=== PATIENT | female | born 1965 | race Hispanic/Latino ===

== ENCOUNTER 2017-12-24 19:27 | Emergency (ER) | payer OTHER ==
[~2017-12-24] VITALS: Ht 162.6 cm; Wt 81.0 kg
[2017-12-24] MEDS ORDERED: FLUCONAZOLE150 MG PO (20:17)
[2017-12-24] MEDS ORDERED: PIOGLITAZONE HC15 MG PO (20:18)
[2017-12-24] MEDS ORDERED: METFORMIN HCL500 MG PO (20:18)
[2017-12-24] MEDS ORDERED: ATORVASTATIN CA10 MG PO (20:19)
[2017-12-24] MEDS ORDERED: TRAZODONE50 MG PO (20:19)
[2017-12-24] MEDS ORDERED: DULOXETINE HCL60 MG PO (20:20)
[2017-12-24] MEDS ORDERED: LYRICA225 MG PO (20:20)
[2017-12-24] MEDS ORDERED: LOPID600 MG PO (20:20)
[2017-12-24] MEDS ORDERED: VITAMIN E400 UNIT PO (20:21)
[2017-12-24] MEDS ORDERED: VITAMIN D1000 UNI1 PO (20:21)
[2017-12-24] MEDS ORDERED: VITAMIN B-12500 MCG PO (20:22)
[2017-12-24] MEDS ORDERED: TRAMADOL HCL50 MG PO (20:28)
[2017-12-24 20:45] VITALS: BP 112/85
== END 2017-12-24 20:45 | disposition home or self-care (01) | DRG 563 ==
LOC: ED 19:27
DX: S92.502A Displaced unspecified fracture of left lesser toe(s), initial encounter for closed fracture (principal); S43.402A Unspecified sprain of left shoulder joint, initial encounter; E11.9 Type 2 diabetes mellitus without complications; M06.9 Rheumatoid arthritis, unspecified; M19.90 Unspecified osteoarthritis, unspecified site; M79.7 Fibromyalgia; M35.00 Sjogren syndrome, unspecified; W22.09XA Striking against other stationary object, initial encounter; Y92.009 Unspecified place in unspecified non-institutional (private) residence as the place of occurrence of the external cause

== ENCOUNTER 2020-11-09 13:11 | Inpatient (IN) | payer OTHER ==
[~2020-11-09] VITALS: Ht 162.6 cm; Wt 74.2 kg
[~2020-11-09 13:11] MED LIST: ATORVASTATIN CA10 MG PO; DULOXETINE HCL60 MG PO; FLUCONAZOLE150 MG PO; LOPID600 MG PO; LYRICA225 MG PO; METFORMIN HCL500 MG PO; PIOGLITAZONE HC15 MG PO; TRAMADOL HCL50 MG PO; TRAZODONE50 MG PO; VITAMIN B-12500 MCG PO; VITAMIN D1000 UNI1 PO; VITAMIN E400 UNIT PO
--- NOTE | 2020-11-09 13:11 | NUR ---
PATIENT SEEN IN OUTSIDE WAITING AREA OXYGEN SATURATION 89% ON ROOM AIR AND PULSE 92. MD NOTIFIED AND VERBAL ORDERSRECIEVED FOR OXYGEN. PATIENT PLACED ON O2 OXYGEN SATURATION 95% ON 2 LITERS OXYGEN
--- NOTE | 2020-11-09 13:35 | NUR ---
PATIENT TO ROOM VIA WHEELCHAIR ON O2 AND PHYSICIAN NOTIFIED OF PATIENT STATUS
--- NOTE | 2020-11-09 14:30 | NUR ---
PT ADVISED OF WAIT TIME FOR TEST RESULTS. ELEVATED HOB.
[2020-11-09 14:44] LABS: HEMOGLOBIN 14.1 g/dl (12.0-16.0); IMMATURE GRANULOCYTES 0.4 % (0.0-5.0); MEAN CELL VOLUME 93.2 fL CALC (80.0-100.0); MEAN CORPUSCULAR HGB 29.9 pG CALC (26.0-32.0); NEUT# 1.47 thou/uL (2.00-7.15); RED BLOOD COUNT 4.72 mill/uL (4.20-5.60); RED CELL DISTRI WIDTH 14.9 % (11.5-15.5)
[2020-11-09 14:59] LABS: ALBUMIN 3.4 g/dL (3.2-5.0); ALKALINE PHOSPHATASE 174 u/l (38-126); ANION GAP 13 (6-22 (CALC)); BILIRUBIN, TOTAL 0.7 mg/dL (0.0-1.4); BUN 11 mg/dL (7-17); BUN/CREATININE RATIO 24 (12-20 (CALC)); CARBON DIOXIDE 26 mmol/l (22-30); CHLORIDE 102 mmol/l (95-108); CREATININE 0.4 mg/dL (0.5-1.0); GFR > 60 ML/MIN (>=60 (CALC)); GFR FOR AFR.AMER. > 60 ML/MIN (>=60 (CALC)); POTASSIUM 3.8 mmol/l (3.5-5.1); SGOT/AST 137 u/l (14-36); SODIUM 137 mmol/l (137-146); TOTAL PROTEIN 6.8 g/dL (6.3-8.2)
[2020-11-09 15:11] LABS: MYOGLOBIN 28 ng/mL (0 - 62)
--- NOTE | 2020-11-09 15:38 | NUR ---
pt medicated for c/o nausea. emesis bag provided. iv abt infusing.
--- NOTE | 2020-11-09 16:35 | NUR ---
PT AWARE OF PENDING ADMIT. ASSISTED W/REPOSITIONING.
--- NOTE | 2020-11-09 17:22 | NUR ---
REPORT CALLED TO JOHANN TREADWELL, [facility]. PT INCREASED TO 6L/M VIA NC BY RT. SATS 92%. AWARE.
--- NOTE | 2020-11-09 17:50 | NUR ---
PT A/O X3. PERRLA. WEAK HAND GRASPS. STRONG RADIAL AND PEDAL PULSES. #20 LAC NS @100. IV SITE HEALTHY. O2 @6L HIGH FLOW; PT MAINTAING 93%. TELE IN PLACE. UPPER LUNGS CLEAR, LOWER LOBES DIMINISHED. DRY COUGH NOTED. LABORED BREATHING. NO C/O PAIN. HOB ELEVATED. BOWEL SOUNDS ACTIVE X4. LAST BM 11/09/20. SKIN INTACT. SAFETY PRECAUTIONS IN PLACE. CALL LIGHT IN REACH. WILL CONTINUE TO MONITOR.
[2020-11-09 17:56] VITALS: BP 122/80
[2020-11-09 19:25] VITALS: BP 118/77
[2020-11-09 23:30] VITALS: BP 118/79
[2020-11-10] VITALS (12 sets, daily range): BP systolic 114–133; BP diastolic 64–80
[2020-11-10 06:39] LABS: HEMATOCRIT 41.5 % (37.0-47.0); HEMOGLOBIN 13.1 g/dl (12.0-16.0); MEAN CORPUSCULAR HGB 29.4 pG CALC (26.0-32.0); MEAN CORPUSCULAR HGB CONC 31.6 g/dL CAL (32.0-36.0); NEUT# 0.65 thou/uL (2.00-7.15); RED BLOOD COUNT 4.46 mill/uL (4.20-5.60); RED CELL DISTRI WIDTH 14.9 % (11.5-15.5)
[2020-11-10 06:42] LABS: ALBUMIN 2.9 g/dL (3.2-5.0); ALKALINE PHOSPHATASE 150 u/l (38-126); ANION GAP 14 (6-22 (CALC)); BILIRUBIN, TOTAL 0.5 mg/dL (0.0-1.4); BUN 14 mg/dL (7-17); BUN/CREATININE RATIO 39 (12-20 (CALC)); C-REACTIVE PROTEIN 6.2 mg/dL (0-0.9); CARBON DIOXIDE 22 mmol/l (22-30); CHLORIDE 106 mmol/l (95-108); CREATININE 0.4 mg/dL (0.5-1.0); GFR > 60 ML/MIN (>=60 (CALC)); GFR FOR AFR.AMER. > 60 ML/MIN (>=60 (CALC)); POTASSIUM 4.1 mmol/l (3.5-5.1); SGOT/AST 89 u/l (14-36); SODIUM 138 mmol/l (137-146); TOTAL PROTEIN 5.9 g/dL (6.3-8.2)
--- NOTE | 2020-11-10 06:55 | NUR ---
call received from lab. critical lab results was reported to nurse. wbc went down to 1.3 Md Subramanian made aware. no neww order received.
--- NOTE | 2020-11-10 07:30 | NUR ---
PT A/O X3. PT C/O CHEST PAIN WHEN DEEP BREATHING; 5/10 ON PAIN SCALE. REPOSITIONED FOR COMFORT. TELE IN PLACE. O2 @12 L ON PT. NONPRODUCTIVE COUGH NOTED. O2 STATING 90-91%. # 20 LAC NS @100. IV SITE HEALTHY. ALL LUNG HEDRICK W/ CRACKLES NOTED. STRONG RADIAL AND PEDAL PULSES. BOWEL SOUNDS ACTIVE X4. LAST BM11/09/20. SKIN INTACT. NO EDEMA PRESENT AT THIS TIME. POC DISCUSSED PT. SAFETY PRECAUTIONS IN PLACE. CALL LIGHT IN REACH. WILL CONTINUE TO MONITOR.
[2020-11-10] MEDS ORDERED: TRESIBA100 UNIT/M (07:52)
[2020-11-10] MEDS ORDERED: OZEMPIC4 MG (07:53)
--- NOTE | 2020-11-10 10:29 | NUR ---
PT ON 12 L OF O2 LYING ON HER RIGHT SIDE. INSTRUCTED PT TO LIE IN OPRONE POSITION TO HELP WITH HER LUNGS. PT REPOSITION; PT STATES LYING ON HER BELLY IS COMFORTABLE. O2 DROPPED TO 9L AND STATING 90-91%. ADVISED PT TO STAY IN POSITION LONG TOLERATED. CALL LIGHT IN REACH. WILL CONTINUE TO MONITOR.
[2020-11-10] MEDS ORDERED: OZEMPIC2 MG/1.5 M (10:41)
--- NOTE | 2020-11-10 12:00 | NUR ---
PT RESTING IN PRONE POSITION. O2 @ 9L ON PT; 93%. NO C/O AT THIS TIME. CALL LIGHT IN REACH. WILL CONTINUE TO MONITOR.
--- NOTE | 2020-11-10 13:35 | NUR ---
PT REPORT GIVEN TO BHARAT SHUKLA
--- NOTE | 2020-11-10 13:38 | NUR ---
report received from Tory Carmen LPN;
--- NOTE | 2020-11-10 14:05 | NUR ---
PATIENT ARRIVED IN ICU 5
--- NOTE | 2020-11-10 14:30 | NUR ---
PATIENT IS A/OX3, ABLE TO MAKE NEEDS KNOWN. PERRLA 3MM. COMPLAINS OF PAIN WHEN SHE TAKES A DEEP BREATH. DIMINISHED LUNG SOUNDS. NORMAL HEART RATE. ACTIVE BOWEL SOUNDS. NO EDEMA PRESENT AT THIS TIME. STRONG/EQUAL HAND RETAIL BRAND AMBASSADOR. STRONG PULSES. SAFETY MEASURES IN PLACE. CALL LIGHT IN REACH WILL CONTINUE TO MONITOR. PATIENT IS CURRENTLY PRONE, O2 SATS 98 AT THIS TIME.
--- NOTE | 2020-11-10 16:00 | NUR ---
MEDICATIONS BROUGHT OVER BY [employer] AND IS BEING HUNG UP.
--- NOTE | 2020-11-10 18:23 | NUR ---
RESTING IN BED, DINNER AT BEDSIDE.
--- NOTE | 2020-11-10 19:10 | NUR ---
pulse ox is 78%. pt laying on lt side. instructed pt prone & she complied. o2 sat increased to 89% on 15 liters high flow. instructed pt on cough etiquette. quality assurance monitor shows sinus rhythm. #20 lac ns infusing @ 100cchr. po fluids taken poor. voids per bsc. fall & air/contact precautions cont.
--- NOTE | 2020-11-10 20:40 | NUR ---
returned call to . update given.
--- NOTE | 2020-11-10 20:45 | NUR ---
dr lee called this news writer. update given. no new orders.
--- NOTE | 2020-11-10 22:15 | NUR ---
up per self to bsc. pulse ox 67%. encouraged pt to quickly finish then return to bed in the prone position. pt complied. pulse ox 89%.
[2020-11-11] VITALS (14 sets, daily range): BP systolic 101–137; BP diastolic 51–82
--- NOTE | 2020-11-11 00:01 | NUR ---
eyes closed. no acute distress. alarm security or surveillance monitor shows sinus rhythm hr 74.
--- NOTE | 2020-11-11 02:00 | NUR ---
remains in prone position. no acute distress. o2 cont.
--- NOTE | 2020-11-11 04:00 | NUR ---
eyes closed. remains in prone position. jacquard loom weaver shows sinus rhythm hr 74.
--- NOTE | 2020-11-11 05:40 | NUR ---
pulse ox 60%. pt on bsc. encouraged pt to finish quickly then return to bed in prone position. pt complied. after approx 1 minute pulse ox is 86%.
[2020-11-11 07:40] LABS: HEMATOCRIT 42.1 % (37.0-47.0); HEMOGLOBIN 13.3 g/dl (12.0-16.0); IMMATURE GRANULOCYTES 0.5 % (0.0-5.0); MEAN CELL VOLUME 93.8 fL CALC (80.0-100.0); MEAN CORPUSCULAR HGB 29.6 pG CALC (26.0-32.0); MEAN CORPUSCULAR HGB CONC 31.6 g/dL CAL (32.0-36.0); NEUT# 3.19 thou/uL (2.00-7.15); RED BLOOD COUNT 4.49 mill/uL (4.20-5.60); RED CELL DISTRI WIDTH 14.8 % (11.5-15.5)
--- NOTE | 2020-11-11 07:46 | NUR ---
O2 SAT ON 15L HF 88%
[2020-11-11 08:02] LABS: ALBUMIN 2.8 g/dL (3.2-5.0); ALKALINE PHOSPHATASE 133 u/l (38-126); ANION GAP 10 (6-22 (CALC)); BILIRUBIN, TOTAL 0.5 mg/dL (0.0-1.4); BUN 19 mg/dL (7-17); BUN/CREATININE RATIO 55 (12-20 (CALC)); CARBON DIOXIDE 25 mmol/l (22-30); CHLORIDE 110 mmol/l (95-108); CREATININE 0.3 mg/dL (0.5-1.0); GFR > 60 ML/MIN (>=60 (CALC)); GFR FOR AFR.AMER. > 60 ML/MIN (>=60 (CALC)); POTASSIUM 3.9 mmol/l (3.5-5.1); SGOT/AST 78 u/l (14-36); SODIUM 141 mmol/l (137-146)
--- NOTE | 2020-11-11 08:30 | NUR ---
Patient is resting with complaint of nausea. Louisa Saige and cold wash cloth was provided. Patient reposition and encourage to go prone on the bed after nausea improves. Will continue to monitor.
--- NOTE | 2020-11-11 12:30 | NUR ---
Patient is prone position. Patient ask if she is having any pain and stated no. Will continue to monitor.
--- NOTE | 2020-11-11 16:00 | NUR ---
Patient reposition oxygenation is continuing to stay in the ruth 80s. Still in prone position. When awake oxygenation in the low 90s. Patient is continuing to have loose stools. Patient reported having nausea PRN zofran provided. Will continue to monitor.
--- NOTE | 2020-11-11 17:05 | NUR ---
O2 SAT ON 15L HFNC 91%
--- NOTE | 2020-11-11 17:30 | NUR ---
Patients daughter was updated on patient status. Patient is having WOB. Respitory called due to patient having a hard time breathing through her nose and mouth breathing. NON-Rebreather was place to bring O2 up from low 40s current O2 is at 88. Patient is still on prone position. Will continue to monitor.
--- NOTE | 2020-11-11 19:00 | NUR ---
REPORT GIVEN BY AJIT. PATIENT RESTING IN BED WITH NON-REBREATHER IN PLACE AT 15L. RESP LABORED AND SHALLOW. PATIENT EDUCATED ON DEEP BREATHING, CONTIUNES TO TAKE SHALLOW BREATH THROUGH HER MOUTH. FALL AND SAFTEY PRECAUTIONS IN PLACE. IV INFUSING FLUIDS. NSR ON TELE. PLAN OF CARE DISCUCSSED. PATIENT INFORMED TO CALL WITH ANY QUESTIONS OR CONCERNS.
--- NOTE | 2020-11-11 19:27 | NUR ---
RT CALLED TO BEDSIDE. PATIENT'S O2 SAT 57%, PATIENT IS EXPERIENCING SOB. PATIENT HAS AGREED TO BIPAP AT THIS TIME.
--- NOTE | 2020-11-11 20:11 | NUR ---
UPDATED ON PATIENT CONDITION.
--- NOTE | 2020-11-11 21:55 | NUR ---
UPDATED ON PATIENT CONDITION AND BIPAP SETTINGS
[2020-11-12] VITALS (61 sets, daily range): BP systolic 93–182; BP diastolic 61–112
--- NOTE | 2020-11-12 02:01 | NUR ---
PATIENT RESTING IN BED WITH EYES CLOSED. RESP EVEN AND UNLABORED. NO S/S OF DISTRESS NOTED. FALL AND SAFTEY PRECAUTIONS IN PLACE. BIPAP IN PLACE.
[2020-11-12 04:18] LABS: HEMATOCRIT 43.3 % (37.0-47.0); HEMOGLOBIN 13.7 g/dl (12.0-16.0); IMMATURE GRANULOCYTES 0.6 % (0.0-5.0); MEAN CELL VOLUME 93.7 fL CALC (80.0-100.0); MEAN CORPUSCULAR HGB 29.7 pG CALC (26.0-32.0); MEAN CORPUSCULAR HGB CONC 31.6 g/dL CAL (32.0-36.0); NEUT# 5.01 thou/uL (2.00-7.15); RED BLOOD COUNT 4.62 mill/uL (4.20-5.60); RED CELL DISTRI WIDTH 14.9 % (11.5-15.5)
--- NOTE | 2020-11-12 04:43 | NUR ---
PATIENT RESTING WITH EYES CLOSED. BI-PAP IN PLACE. FALL AND SAFTEY PRECAUTIONS IN PLACE.
[2020-11-12 04:46] LABS: ALBUMIN 2.8 g/dL (3.2-5.0); ALKALINE PHOSPHATASE 132 u/l (38-126); ANION GAP 7 (6-22 (CALC)); BILIRUBIN, TOTAL 0.5 mg/dL (0.0-1.4); BUN 21 mg/dL (7-17); BUN/CREATININE RATIO 55 (12-20 (CALC)); C-REACTIVE PROTEIN 3.3 mg/dL (0-0.9); CARBON DIOXIDE 31 mmol/l (22-30); CHLORIDE 109 mmol/l (95-108); CREATININE 0.4 mg/dL (0.5-1.0); GFR > 60 ML/MIN (>=60 (CALC)); GFR FOR AFR.AMER. > 60 ML/MIN (>=60 (CALC)); POTASSIUM 3.5 mmol/l (3.5-5.1); SGOT/AST 69 u/l (14-36); SODIUM 143 mmol/l (137-146); TOTAL PROTEIN 5.9 g/dL (6.3-8.2)
--- NOTE | 2020-11-12 06:36 | NUR ---
ACCU CHECK 64, APPLE JUICE GIVEN.
--- NOTE | 2020-11-12 06:45 | NUR ---
REPORT RECEIVED FROM TEENA NICHOLSON. CARE ASSUMED.
--- NOTE | 2020-11-12 07:00 | NUR ---
RT AT BEDSIDE WTIH PATIENT. PATIENT GETTING UP TO BSC. O2 SATS DROP WITH MINIMAL MOVEMENT.
--- NOTE | 2020-11-12 07:15 | NUR ---
THIS BANK WORKER INTO ROOM FOR AM ASSESSMENT. PATIENT VERY ANXIOUS. PATIENT STATES "AM I GOING TO " PATIENT VERY SCARED AND VERY ANXIOUS. PATIENT STATES SHE HAS BEEN INCONTIENT. DR OLMOS PHONED FOR MEDICATION FOR ANXIETY. NEW ORDERS RECEIVED.
--- NOTE | 2020-11-12 08:00 | NUR ---
PATIENT HAVING LABORED RESPIRATIONS. RESPIRATORY RATE 50-60. PATIENT ENCOURAGED TO SLOW RESPIRATEIONS. BLUNT ATTEMPTS X2 BY ICU NURSING STAFF WERE UNSUCCESSFUL. PHONED OR STAFF TO COME AND ASSIST. HOLLIE NICHOLSON PLACED 12 FR BLUNT. UA OBTAINED AND SENT TO LAB. URINE IS AVA WITH SEDIMENT.
--- NOTE | 2020-11-12 08:40 | NUR ---
DR OLMOS INTO ROOM TO SEE PATIENT. PATIENT HAVING LABORED BREATHING ON BIPAP. TACHYPNEA NOTED. DR OLMOS DISCUSSED THE NEED FOR INTUBATION AT THIS TIME. PATIENT AGREED TO INTUBATION.
--- NOTE | 2020-11-12 09:15 | NUR ---
INTUBATION FOLLOWS 0915- #20 PLACED RAC 0920- ETMIDATE 20MG GIVEN IV PUSH 0921- SUCC 80MG GIVEN IV PUSH 0928- 8.0 FR ET TUBE PLACED @[address] CAT +CO2 +AUSCULTATION BILAT 0935- 14FR OG PLACED AND PLACED TO LIS 0935- PATIENT PLACED ON PROPOFOL DRIP 0945- RADIOOGY AT BEDSIDE FOR PORTABLE CXR 1000- RESTRAINTS IN PLACE FOR PROTECTION OF ET TUBE
--- NOTE | 2020-11-12 09:57 | NUR ---
ASSSISTED PHYSIICAN IN INTUBATION AND STATED PATIENT ON MECHANICAL VENTILATION. PT REQUIRED SUCTIONING OF VAZQUEZ BLOOD FROM THE ETT. TOTAL TIME SPENT WAS 1 HOUR.
--- NOTE | 2020-11-12 10:30 | NUR ---
PT RESTING IN BED INTUBATED AND SEDATED. IV TITRATIONS PER TITRATION CHARTING.
--- NOTE | 2020-11-12 11:49 | NUR ---
CALLED [address] AT SPOKE TO MELANIA GAVE PT INFORMATION AND WAS GIVEN A CONFIRMATION NUMBER [phone].
--- NOTE | 2020-11-12 12:00 | NUR ---
PT RESTING IN BED INTUBATED AND SEDATED. VSS ON MONITOR.WILL CONTINUE TO MONITOR CLOSELY.
[2020-11-12 12:07] LABS: URINE BILIRUBIN - DIPSTICK NEGATIVE (NEGATIVE); URINE BLOOD DIPSTICK TRACE-INTACT (NEGATIVE); URINE COLOR YELLOW; URINE GLUCOSE - DIPSTICK NEGATIVE (NEGATIVE); URINE KETONE 15 mg/dL (NEGATIVE); URINE LEUK ESTERASE NEGATIVE (NEGATIVE); URINE PROTEIN - DIPSTICK TRACE mg/dL (NEG-TRACE); URINE SPECIFIC GRAVITY 1.025; URINE UROBILINOGEN - DIPSTICK 0.2 E.U./dL (0.2)
[2020-11-12 12:13] LABS: URINE NITRITE - DIPSTICK NEGATIVE (Negative)
--- NOTE | 2020-11-12 12:23 | NUR ---
CALLED FOR CENTRAL LINE PLACEMENT FOR THIS PT. OFFICE NUMBER [phone]. SPOKE TO KURTIS. SHE STATED SHE WILL SEND HIM A TEXT FOR THE PT AND GIVEN THE FLOOR A CALL BACK AT [phone].
--- NOTE | 2020-11-12 14:00 | NUR ---
PT RESTING IN BED INTUBATED AND SEDATED. VSS. WILL CONTINUE TO MONITOR.
--- NOTE | 2020-11-12 16:02 | NUR ---
PT RESTING IN BED INTUBATED AND SEDATED. VSS. SR ON MONITOR. WILL CONTINUE TO MONITOR.
--- NOTE | 2020-11-12 17:50 | NUR ---
PT RESTING IN BED INTUBATED AND SEDATED.
--- NOTE | 2020-11-12 18:15 | NUR ---
PT MOVED TO AIR MATRESS BED. PT HAD MODERATED LIQUID BM. PT GIVEN BED BATH. PT TOLERATED TRANSFER WELL.
--- NOTE | 2020-11-12 19:30 | NUR ---
PATIENT REMAINS INTUBATED ON VENT. SEDATED ON PRPOFOL AND VERSED GTTS. RASS -5. SOFT WRIST RESTRAINTS IN PLACE BILATERALLY. PATIENT IS ON AN AIR MATTRESS. SCDS IN PLACE BILATERALLY. LABOR ECONOMIST SHOWS SR. SHIFT ASSESSMENT COMPLETED.
--- NOTE | 2020-11-12 21:40 | NUR ---
CALLED [facility] TO OBTAIN CONSENT FOR CENTRAL LINE PLACEMENT. TELEPHONE CONSENT GIVEN.
--- NOTE | 2020-11-12 22:00 | NUR ---
REPOSITIONED. VSS. SB-SR ON MONITOR.
--- NOTE | 2020-11-12 22:30 | NUR ---
LSCTLC PLACED BY DR ALVARADO WITHOUT DIFFICULTY.
--- NOTE | 2020-11-12 23:00 | NUR ---
PORTABLE CHEST XRAY CONFIRMED PLACEMNT OF TLC. DR ALVARADO VERIFIED.
[2020-11-13] VITALS (24 sets, daily range): BP systolic 107–145; BP diastolic 71–92
--- NOTE | 2020-11-13 | NUR ---
REPOSITONED. VSS. SB-SR ON MONITOR. O2 SAT UPPER 90'S.
--- NOTE | 2020-11-13 02:00 | NUR ---
REPOSTIONED IN BED. ORAL CARE. SUX ETT AND ORALLY FOR SCANT SECRETIONS. VSS.
--- NOTE | 2020-11-13 03:56 | NUR ---
PARTIAL BED BATH AND COMPLETE LINEN CHANGE DONE. TURNED AND REPOSITIONED.
--- NOTE | 2020-11-13 05:37 | NUR ---
ABGS DRAWN PER RT WADNER. ACCUC HECK 168, COVERED PER SLIDING SCALE PROTOCOL.
[2020-11-13 06:29] LABS: HEMATOCRIT 40.5 % (37.0-47.0); HEMOGLOBIN 12.9 g/dl (12.0-16.0); IMMATURE GRANULOCYTES 0.7 % (0.0-5.0); MEAN CELL VOLUME 92.7 fL CALC (80.0-100.0); MEAN CORPUSCULAR HGB 29.5 pG CALC (26.0-32.0); MEAN CORPUSCULAR HGB CONC 31.9 g/dL CAL (32.0-36.0); NEUT# 5.71 thou/uL (2.00-7.15); RED BLOOD COUNT 4.37 mill/uL (4.20-5.60)
[2020-11-13 06:43] LABS: ALBUMIN 2.4 g/dL (3.2-5.0); ALKALINE PHOSPHATASE 129 u/l (38-126); ANION GAP 7 (6-22 (CALC)); BUN 16 mg/dL (7-17); BUN/CREATININE RATIO 54 (12-20 (CALC)); CARBON DIOXIDE 30 mmol/l (22-30); CHLORIDE 108 mmol/l (95-108); CREATININE 0.3 mg/dL (0.5-1.0); GFR > 60 ML/MIN (>=60 (CALC)); GFR FOR AFR.AMER. > 60 ML/MIN (>=60 (CALC)); POTASSIUM 3.5 mmol/l (3.5-5.1); SGOT/AST 56 u/l (14-36); SODIUM 141 mmol/l (137-146); TOTAL PROTEIN 5.3 g/dL (6.3-8.2)
--- NOTE | 2020-11-13 06:45 | NUR ---
REPORT RECEIVED FROM JJ NICHOLSON. CARE ASSUMED.
--- NOTE | 2020-11-13 07:00 | NUR ---
PT RESTING IN BED INTUBATED AND SEDATED. SHIFT ASSESSMENT COMPLETED AT THIS TIME. IV PATENT X3. VSS ON MONITOR. CALL LIGHT IN REACH. WILL CONTINUE TO MONITOR.
[2020-11-13 07:01] LABS: C-REACTIVE PROTEIN 14.6 mg/dL (0-0.9)
--- NOTE | 2020-11-13 08:30 | NUR ---
DR OLMOS AT BEDSIDE. PLAN OF CARE DISCUSSED. WILL HOLD ON AWAKENING TRIAL FOR TODAY AND ALLOW PATIENT TIME TO REST ON VENT. PLAN FOR AWAKENING TRIAL FOR TOMORROW.
--- NOTE | 2020-11-13 10:00 | NUR ---
PT RESTING IN BED INTUBATED AND SEDATED AT THIS TIME. VSS ON MONITOR. WILL CONTINUE TO MONITOR CLOSELY.
--- NOTE | 2020-11-13 12:00 | NUR ---
PT RESTING IN BED INTUBATED AND SEDATED AT THIS TIME. VSS ON MONITOR. WILL CONTINUE TO MONITOR.
--- NOTE | 2020-11-13 14:13 | NUR ---
PT RESTING IN BED INTUBATED AND SEDATED. VSS ON MONITOR. WILL CONTINUE TO MONITOR CLOSELY.
--- NOTE | 2020-11-13 16:00 | NUR ---
PT RESTING IN BED INTUBATED AND SEDATED. VSS ON MONITOR. CALL LIGHT IN REACH. WILL CONTINUE TO MONTIOR.
--- NOTE | 2020-11-13 18:08 | NUR ---
PT RESTING IN BED INTUBATED AND SEDATED AT THIS TIME. VSS ON MONITOR. WILL CONTINUE TO MONITOR CLOSELY.
--- NOTE | 2020-11-13 18:44 | NUR ---
PEEP INCREASED TO 14cm DUE TO PT DROPPING HER SPO2 TO 83. SPO2 INCREASED TO 93% FOLLOWING CHANGE.
--- NOTE | 2020-11-13 20:00 | NUR ---
RESTING IN BED IN SUPINE POSITION, HOB ELEVATED. REMAINS INTUBATED AND SEDATED. RASS -4. LSCTLC IN PLACE WITH NS AT 50 ML/HR, VERSED GTT AT 2 MG/HR, AND PROPOFOL GTT AT 60 MCG/KG/MIN. BREATH SOUNDS DIMINISHED/COARSE. SUX ETT FOR SCANT SECRETIONS AND ORALLY FOR MODERATE RUST COLORED SECRETIONS. ORAL CARE PROVIDED. INDUSTRIAL HYGIENE ENGINEER SHOWS SB-SR. SHIFT ASSESSMENT COMPLETED. VSS. O2 SAT 91%
--- NOTE | 2020-11-13 20:20 | NUR ---
PATIENT TURNED TO PRONE POSITION WITH ASSIST OF 4 NURSES, 1 INVESTMENT COUNSELOR AND RT. O2 SAT INITIALLY DROPPED BUT PICKED UP TO UPPER 98% WITHIN 5 MINUTES.
--- NOTE | 2020-11-13 21:00 | NUR ---
CONTINUES IN PRONE POSITION, O2 SAT 100%.
--- NOTE | 2020-11-13 22:00 | NUR ---
REMAINS IN PRONE POSITION AND MAINTAINNG O2 SAT OF 100% VSS. LEARNING DISABILITIES SPECIALIST SHOWS SR.
[2020-11-14] VITALS (39 sets, daily range): BP systolic 104–178; BP diastolic 56–92
--- NOTE | 2020-11-14 | NUR ---
VSS. SAME VENT SETTINGS. O2 SAT 100% CONTINUES TO REST IN PRONE POSITION.
--- NOTE | 2020-11-14 02:00 | NUR ---
REMAINS RESTING PRONE. O2 SAT HAS MAINTAINED AT 100% WHILE PRONE. VSS. SR ON MONITOR.
--- NOTE | 2020-11-14 04:00 | NUR ---
COMPLETE BED BATH GIVEN. TURNED TO SUPINE POSITION WITH ASSIST OF 6. O2 SAT REMAINS AT 100%
--- NOTE | 2020-11-14 05:00 | NUR ---
BLOOD DRAWN FROM TLC FOR AM LABS. ALL PORTS HAVE GOOD BLOOD RETURN, FLUSHED AND PATENT.
--- NOTE | 2020-11-14 06:00 | NUR ---
NO CHANGES TO REPORT. REMAINS IN SEMI-FOWLERS POSITION. O2 SAT 98-100% REMAINS NTUBATED AND SEDATED ON PROPOFOL GTT AT 50 MCG/KG/MIN AND VERSED AT 2 MG/HR.
[2020-11-14 06:43] LABS: HEMATOCRIT 38.1 % (37.0-47.0); HEMOGLOBIN 12.1 g/dl (12.0-16.0); IMMATURE GRANULOCYTES 0.6 % (0.0-5.0); MEAN CELL VOLUME 92.5 fL CALC (80.0-100.0); MEAN CORPUSCULAR HGB 29.4 pG CALC (26.0-32.0); MEAN CORPUSCULAR HGB CONC 31.8 g/dL CAL (32.0-36.0); NEUT# 7.28 thou/uL (2.00-7.15); RED BLOOD COUNT 4.12 mill/uL (4.20-5.60)
--- NOTE | 2020-11-14 06:45 | NUR ---
weaned pt peep and fio2 as per pt spo2. recieved pt on all other documented paramters. pt everett wean wellat this time. nad. dolphin researcher to monitor.
--- NOTE | 2020-11-14 07:30 | NUR ---
PT RESTING IN BED INTUBATED AND SEDATED AT THIS TIME. SHIFT ASSESSMENT COMPLETED AT THIS TIME. IV PATENT X1. AWAKENING TRIAL STARTED SEE TITRATION CHARTING. VSS ON MONITOR. WILL CONTINUE TO MONITOR CLOSELY.
[2020-11-14 07:31] LABS: ALBUMIN 2.3 g/dL (3.2-5.0); ALKALINE PHOSPHATASE 116 u/l (38-126); ANION GAP 6 (6-22 (CALC)); BUN 16 mg/dL (7-17); BUN/CREATININE RATIO 58 (12-20 (CALC)); CARBON DIOXIDE 30 mmol/l (22-30); CHLORIDE 109 mmol/l (95-108); CREATININE 0.3 mg/dL (0.5-1.0); GFR > 60 ML/MIN (>=60 (CALC)); GFR FOR AFR.AMER. > 60 ML/MIN (>=60 (CALC)); POTASSIUM 3.6 mmol/l (3.5-5.1); SGOT/AST 39 u/l (14-36); SODIUM 142 mmol/l (137-146); TOTAL PROTEIN 5.1 g/dL (6.3-8.2)
[2020-11-14 07:36] LABS: BILIRUBIN, TOTAL 0.5 mg/dL (0.0-1.4)
[2020-11-14 07:47] LABS: C-REACTIVE PROTEIN 12.4 mg/dL (0-0.9)
--- NOTE | 2020-11-14 08:16 | NUR ---
WEANED PEEP AND FIO2 PER PT SPO2. PT MAURO WELL AT THIS TIME. NAD. ASSOCIATE SALES REPRESENTATIVE TO MONITOR.
--- NOTE | 2020-11-14 08:36 | NUR ---
REPORT RECEIVED FROM JJ NICHOLSON. CARE ASSUMED.
--- NOTE | 2020-11-14 08:45 | NUR ---
DR OLMOS ON UNIT MAKING ROUNDS. PLAN OF CARE DISCUSSED.
--- NOTE | 2020-11-14 10:06 | NUR ---
weaned fio2 and peep as per pt spo2. pt everett [place] at this time. nad. land title examiner to monitor. -
--- NOTE | 2020-11-14 10:30 | NUR ---
DAUGHTER BATSHEVA PHONED. TRANSFERRED PHONE TO CORDLESS PHONE INTO ROOM SO PATIENT COULD HEAR DAUGHTERS VOICE. UPDATE PROVIDED.
--- NOTE | 2020-11-14 12:29 | NUR ---
weaned fio2 and peep as per pt spo2. everett well at this time. nad. wrapper counter to monitor.
--- NOTE | 2020-11-14 12:30 | NUR ---
PT RESTING IN BED INTUBATED AND SEDATED. VSS ON MONITOR. WILL CONTINUE TO MONITOR.
--- NOTE | 2020-11-14 14:00 | NUR ---
PT CONTINUES TO REST IN BED INTUBATED AND SEDATED. WILL CONTINUE TO MONITOR.
--- NOTE | 2020-11-14 14:45 | NUR ---
TITRATED PARAMETERS PER PT SPO2. SENIOR DATABASE PROGRAMMER TO MONITOR.
--- NOTE | 2020-11-14 15:15 | NUR ---
O2 SATS NOTED 71% ON MONITOR. PHONED RT. FIO2 INCREASED VENT ADJUSTMENTS MADE BY RT.
--- NOTE | 2020-11-14 17:04 | NUR ---
no changes at this time.
--- NOTE | 2020-11-14 18:14 | NUR ---
CONTINUOUS TUBE FEED PULMOCARE 1.5 REJI STARTED AT THIS TIME @ 30ML/HR VIA OG TUBE. HOB ELEVATED AT 30 DEGREES. PT TOLERATING WELL.
--- NOTE | 2020-11-14 19:45 | NUR ---
PATIENT REMAINS INTUBATED AND SEDATED. VENT SETTINGS DOCUMENTED IN INTERVENTIONS. O2 AT 100% PATIENT O2 SAT 96% BREATH SOUNDS DIMINISHED AND COARSE. SUX ETT FOR SCANT GARCIA SECRETIONS. MOUTH CARE PROVIDED. LSCTLC IN PLACE, DSG CDI. PROPOFOL AT 55 MCG/KG/MIN AND VERSED AT 2 MG/HR FOR SEDATION. RASS -4. BUSINESS CONTINUITY SPECIALIST SHOWS SR.
--- NOTE | 2020-11-14 19:48 | NUR ---
PATIENT DAUGHTER BATSHEVA PHONED FOR CONDITION UPDATE.
--- NOTE | 2020-11-14 20:45 | NUR ---
PORTABLE PHONE BROUGHT TO BEDSIDE AND PATIENT DAUGHTER BATSHEVA SPOKE TO HER MOM.
--- NOTE | 2020-11-14 22:00 | NUR ---
TF STARTED BY PREVIOUS SHIFT, PULMOCARE FEEDING AT 30 ML/HR VIA FEEDING PUMP. PLACEMENT OF OG TUBE CONFIRMED. NO RESIDUAL, TOLERATING FEEDING WELL THUS FAR. VSS. REMAINS SEDATED AND INTUBATED. O2 SAT 96%
[2020-11-15] VITALS (23 sets, daily range): BP systolic 100–158; BP diastolic 63–96
--- NOTE | 2020-11-15 | NUR ---
RESTING WITH EEYS CLSOED. REMAINS INUTBATED AND SEDATED. VSS.
--- NOTE | 2020-11-15 00:20 | NUR ---
PATIENT RR UP INTO THE 40'S. O2 SAT DROPPED TO 80'S. CALL TO XANDER THOMAS TO EVALUATE. NGT RESIDUAL CHECK SHOWS 90 ML. TUBE FEEDING ON HOLD.
--- NOTE | 2020-11-15 00:35 | NUR ---
FIO2 ON VENT CHANGED TO 80% PER RT XANDER. O2 SAT INCREASED TO 93-94%
--- NOTE | 2020-11-15 02:00 | NUR ---
VSS. HAS ONLY PUT OUT SMALL AMOUNT OF VERY CONCENTRATED TEA COLORED URINE.
--- NOTE | 2020-11-15 03:30 | NUR ---
COMPLETE BED BATH GIVEN. AND LINENS CHANGED. PATIENT TURNED TO PRONE POSITION. WITH ASSIST OF 4 NURSES AND RT. DARK PINK URINE NOTED TO BE LEAKING AROUND BLUNT CATHETER. BLUNT DC'D. NEW BLUNT #16 PLACED WITHOUT DIFFICULTY DRAINING IMMEDIATELY A LARGE AMOUNT OF BLOODY URINE.
--- NOTE | 2020-11-15 04:00 | NUR ---
RESTING PRONE. VSS. O2 SAT 93-98% REMAINS ON VENT. SEDATED ON PROPOFOL AND VERSED GTTS. RASS -4. SR ON MONITOR WITH HR IN THE 70'S.
[2020-11-15 05:17] LABS: HEMATOCRIT 38.6 % (37.0-47.0); HEMOGLOBIN 12.5 g/dl (12.0-16.0); IMMATURE GRANULOCYTES 0.8 % (0.0-5.0); MEAN CELL VOLUME 91.5 fL CALC (80.0-100.0); MEAN CORPUSCULAR HGB 29.6 pG CALC (26.0-32.0); MEAN CORPUSCULAR HGB CONC 32.4 g/dL CAL (32.0-36.0); NEUT# 8.75 thou/uL (2.00-7.15); RED BLOOD COUNT 4.22 mill/uL (4.20-5.60); RED CELL DISTRI WIDTH 15.1 % (11.5-15.5)
[2020-11-15 05:57] LABS: ALBUMIN 2.4 g/dL (3.2-5.0); ALKALINE PHOSPHATASE 132 u/l (38-126); ANION GAP 8 (6-22 (CALC)); BILIRUBIN, TOTAL 0.7 mg/dL (0.0-1.4); BUN 25 mg/dL (7-17); BUN/CREATININE RATIO 32 (12-20 (CALC)); CARBON DIOXIDE 30 mmol/l (22-30); CHLORIDE 108 mmol/l (95-108); CREATININE 0.8 mg/dL (0.5-1.0); GFR > 60 ML/MIN (>=60 (CALC)); GFR FOR AFR.AMER. > 60 ML/MIN (>=60 (CALC)); POTASSIUM 3.1 mmol/l (3.5-5.1); SGOT/AST 44 u/l (14-36); SODIUM 143 mmol/l (137-146); TOTAL PROTEIN 5.3 g/dL (6.3-8.2)
--- NOTE | 2020-11-15 06:00 | NUR ---
CONTINUES RESTING IN PRONE POSITION. VSS.
[2020-11-15 06:30] LABS: C-REACTIVE PROTEIN 12.5 mg/dL (0-0.9)
--- NOTE | 2020-11-15 07:40 | NUR ---
pt intubated and sedated; no apparent distress noted; assessment completed at this time; pt sedated; no apparent s/sx of pain noted; no facial grimaces noted; resp even and unlabored; lungs clear/ diminished bases; skin color wnl; vent intact and maintained with settings of AC mode, rate 28, TV 390, peep 12.0, FiO2 of 70%; o2 sat 99-100%l pt is proned; hr reg; strong pulses; generalized edema noted; sr on monitor; bilat scds intact; abd soft with bs present; no bm noted per television script writer; tesfaye to gravity draining blood tinged urine; cath strap intact; TLC noted to left subclavian with propofol gtt infusing at 45mcg/kg/min and versed at 2mg/hr; no redness or edema noted at site; air mattress intact; restraints continued; og intact/ placement confirmed with air insert/ascult; og to lis; will continue to monitor
--- NOTE | 2020-11-15 08:00 | NUR ---
remains intubated and sedated; resp unlabored; proned positioned; o2 sat 100%; sr on monitor; will continue to monitor
--- NOTE | 2020-11-15 09:07 | NUR ---
PT PRONE AND DOING WELL. NAD. VSS. NO CHANGES TO BE MADE AT THIS TIME. SPINNING MULE TENDER TO MONITOR.
--- NOTE | 2020-11-15 09:29 | NUR ---
Dr Walter present at bedside
--- NOTE | 2020-11-15 10:05 | NUR ---
proned; no apparent distress noted; resp even and unlabored; vent intact and maintained; tesfaye to gravity; will continue to monitor
--- NOTE | 2020-11-15 11:13 | NUR ---
call placed to Keri Reinoso as per request; passcode verified; update provided
--- NOTE | 2020-11-15 11:34 | NUR ---
call returned to Tiffany (daughter); update provided
--- NOTE | 2020-11-15 12:00 | NUR ---
remains intubated and sedated; remains proned; iv intact and patent; versed and propofol continues; tesfaye to gravity; will continue to monitor
--- NOTE | 2020-11-15 12:16 | NUR ---
NO CHANGES AT THIS TIME. PT C NAD. RESTING COMFORTABLY. BREADMAN TO MONITOR.
--- NOTE | 2020-11-15 13:20 | NUR ---
sedation titrated at this time for awakening trial; versed on hold; propofol titrated; daughter Keri called from portable phone; allowed to speak over speaker phone to mother; appeals writer remains at bedside; restraints reinforced to prevent self extubation; proned; will continue to monitor
--- NOTE | 2020-11-15 13:48 | NUR ---
pt in prone position. nad. vss. will titrate parameters when pt is placed supine hsortly. sed high school teacher to monitor.
--- NOTE | 2020-11-15 14:03 | NUR ---
resting in bed with eyes closed; intubated and sedated; sedation remains off at this time pending awakening trial; tesfaye to gravity; iv intact; proned; sr on monitor; will continue to monitor
--- NOTE | 2020-11-15 15:13 | NUR ---
versed and propofol remains on hold; pt has not awakened yet; pt will withdraw to pain; will continue to monitor
--- NOTE | 2020-11-15 16:11 | NUR ---
pt remains intubated; versed and propofol remains on hold; pt withdraws to painful stimuli; pt has not awakened; prone positioned; tesfaye to gravity; iv intact and patent; vent maintained; will continue to monitor
--- NOTE | 2020-11-15 16:30 | NUR ---
pt repositioned to supine position x4 staff; tolerated well; eyes opened briefly; monitoring attachments applied; sedation remains on hold; sr on monitor; tesfaye to gravity; will continue to monitor
--- NOTE | 2020-11-15 17:59 | NUR ---
pt noted with eyes open; pt does not follow verbal commands at this time; hr 90s; tesfaye to gravity; repositioned; air mattress; sedation resumed; versed at 2mg/hr; propofol at 30mcg/kg/min
--- NOTE | 2020-11-15 20:00 | NUR ---
PATIENT REMAINS INTUBATED AND SEDATED. VENT SETTINGS DOCUMENTED IN INTERVENTIONS. O2 SAT 98% BREATH SOUNDS DIMINISHED. SUX ETT AND ORALLY FOR SCANT SECRETIONS. OGT TO LIS DRAINING GASTRIC CONTENTS. BLUNT DRAINS BLOOD TINGED URINE WITH RED SEDIMENT. GENERALIZED EDEMA PRESENT. PATIENT IS ON AN AIR MATTRESS. BILATERAL SOFT WRIST RESTRAINTS IN PLACE. LSCTLC IN PLACE, DSG CDI. PROPOFOL INFUSING AT 30 MCG/KG/MIN AND VERSED GTT AT 2 MG/HR. PATIENT ADEQUATELY SEDATED-RASS -4. PRODUCTION STAFF WORKER SHOWS SR.
--- NOTE | 2020-11-15 22:00 | NUR ---
REMAINS INTUBATED AND SEDATED. VSS. O2 SAT 98%
[2020-11-16] VITALS (23 sets, daily range): BP systolic 90–140; BP diastolic 61–90
--- NOTE | 2020-11-16 | NUR ---
ACCU CHECK 85. NO COVERAGE REQUIRED. VSS. REMAINS SEDATED. VENT SETTINGS UNCHANGED FROM EARLIER ASSESSMENT. O2 SATS UPPER 90'S. DIURESING WELL AFTER LASIX GIVEN EARLIER.
--- NOTE | 2020-11-16 02:00 | NUR ---
NO CHANGGES TO REPORT AT THIS TIME. REMAINS SEDATED AND INTUBATED. PROPOFOL CONTINUES AT 30 MCG/KG/MIN AND VERSED AT 2 MG/HR. SR ON MONITOR.
--- NOTE | 2020-11-16 04:00 | NUR ---
CONTINUES ON VENT. SEDATION ON PROPOFOL AND VERSED, RASS -4 TO -5. VSS. O2 SAT 97-100% VSS. MONITOR SB-SR.
--- NOTE | 2020-11-16 05:30 | NUR ---
COMPLETE BED BATH GIVEN.
[2020-11-16 06:43] LABS: HEMATOCRIT 40.2 % (37.0-47.0); HEMOGLOBIN 13.1 g/dl (12.0-16.0); IMMATURE GRANULOCYTES 0.9 % (0.0-5.0); MEAN CELL VOLUME 92.2 fL CALC (80.0-100.0); MEAN CORPUSCULAR HGB CONC 32.6 g/dL CAL (32.0-36.0); NEUT# 6.25 thou/uL (2.00-7.15); RED BLOOD COUNT 4.36 mill/uL (4.20-5.60); RED CELL DISTRI WIDTH 15.5 % (11.5-15.5)
[2020-11-16 07:06] LABS: ALBUMIN 2.4 g/dL (3.2-5.0); ALKALINE PHOSPHATASE 125 u/l (38-126); ANION GAP 7 (6-22 (CALC)); BILIRUBIN, TOTAL 0.6 mg/dL (0.0-1.4); BUN 25 mg/dL (7-17); BUN/CREATININE RATIO 64 (12-20 (CALC)); C-REACTIVE PROTEIN 7.6 mg/dL (0-0.9); CARBON DIOXIDE 35 mmol/l (22-30); CHLORIDE 107 mmol/l (95-108); CREATININE 0.4 mg/dL (0.5-1.0); GFR > 60 ML/MIN (>=60 (CALC)); GFR FOR AFR.AMER. > 60 ML/MIN (>=60 (CALC)); POTASSIUM 3.2 mmol/l (3.5-5.1); SGOT/AST 39 u/l (14-36); SODIUM 146 mmol/l (137-146); TOTAL PROTEIN 5.3 g/dL (6.3-8.2)
--- NOTE | 2020-11-16 07:40 | NUR ---
pt intubated and sedated; no apparent distress noted; assessment completed at this time; pt intubated; no s/sx of pain/ facial grimaces noted; no n/v noted; resp even and unlabored; lungs clear/ diminished bases; skin color wnl; vent intact and maintained with settings of AC mode, rate 28, TV 390, peep 12.0, FiO2 of 70%; hr reg; strong pulses; generalized edema noted; sr on monitor; abd soft with bs present; no bm noted per credit underwriter; og intact to lis with greenish/yellow gastric content noted; palcement confirmed via air insertion/ ascult; tesfaye to gravity draining well; cath le intact; TLC patent to left subclav with versed at 2mg/hr and propofol at 30mcg/kg/min; no redness or edema noted at site; abrasion noted to inner right heel; air mattress; restraints intact and reinforced; will continue to monitor
--- NOTE | 2020-11-16 07:51 | NUR ---
WEANED FIO2 PER PT SPO2. PT MAURO WELL AT THIS TIME. 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
--- NOTE | 2020-11-16 08:00 | NUR ---
intubated and sedated; sedation on hold for awakening trial; restraints intact; tesfaye to gravity; sr on monitor; will continue to monitor
--- NOTE | 2020-11-16 09:39 | NUR ---
Dr Walter present at bedside to assess pt; pt noted with eyes open; eyes closed per Dr Walter; pt able to open eyes per Dr Walter command; does not follow commands such as squeezing hands and such; will continue to monitor
--- NOTE | 2020-11-16 10:00 | NUR ---
pt noted with eyes open; does not follow commands; iv intact; sedation on hold; tesfaye to gravity; repositioned to high fowlers; air mattress; vent intact and maintained; call light within reach; will continue to monitor
--- NOTE | 2020-11-16 10:30 | NUR ---
tube feed re-initiated; pulmocare at 30cc/hr; goal of 50cc/hr; accucheck was 66; Dr Walter was made aware and agreeable with tube feeds being restarted;
--- NOTE | 2020-11-16 10:59 | NUR ---
weaned peep as per pt spo2. pt to lwell at this time. kaitara taraka to monitor.
--- NOTE | 2020-11-16 12:15 | NUR ---
intubated; no apparent distress noted; vent intact and maintained; sr on monitor; tesfaye to gravity; repositioned; sedation remains on hold; pt continues to not follow verbal commands; pt is asble to open and close eyes; will continue to monitor
--- NOTE | 2020-11-16 14:15 | NUR ---
pt moving head from side to side; open eyes occasionally; ETT and orally suction; st 110s on the monitor; tesfaye to gravity; sedation resumed versed at 1mg/hr and propofol at 30mcg/kg/min; air matress; will continue to monitor
--- NOTE | 2020-11-16 16:01 | NUR ---
remains intubated and sedated; repositioned; oral care; tesfaye to gravity; restraints; sr on monitor; air mattress; will continue to monitor
--- NOTE | 2020-11-16 16:52 | NUR ---
PT RESTING COMFORTABLY N BED. NAD. VSS. CHANGED HME AT THIS TIME. AUTHORS MOTIVATIONAL TO MONITOR.
--- NOTE | 2020-11-16 18:05 | NUR ---
intubated and sedated; no apparent distress noted; sr on monitor; tesfaye to gravity; air mattress;
--- NOTE | 2020-11-16 20:00 | NUR ---
PATIENT REMAINS INTUBATED AND SEDATED. VENT SETTING DOCUMENT IN INTERVENTIONS. O2 SAT 92% ON FIO2 60% BREATH SOUNDS DIMINISHED ESSENTIALLY CLEAR. OGT TO LIS DRAINS GREEN. BLUNT DRAINING AVA URINE. GENRALIZED EDEMA PRESENT. LSCTLC IN PLACE, DSG CDI. PROPOFOL GTT AND VERSED GTT INFUSING FOR SEDATIN WITH RASS -4. SCD'S ON BIALTERALLY. PATIENT IS ON AN AIR MATTRESS. WHARF HAND SHOWS SR, HR 90'S. SHIFT ASSESSMENT COMPLTED.
--- NOTE | 2020-11-16 21:00 | NUR ---
INTUBATED AND SEDATED. VSS.
--- NOTE | 2020-11-16 22:00 | NUR ---
VSS. REMAINS INTUBATED AND SEDATED WITH RASS -4. SR ON MONITOR.
--- NOTE | 2020-11-16 23:00 | NUR ---
RESTING CALMLY AND QUIETLY. VSS.
[2020-11-17] VITALS (24 sets, daily range): BP systolic 94–139; BP diastolic 67–84
--- NOTE | 2020-11-17 01:00 | NUR ---
NO CHANGES TO REPORT. SAME VENT SETTINGS EARLIER. VSS. SR ON MONITOR. SEDATED WELL, RASS -4.
--- NOTE | 2020-11-17 02:20 | NUR ---
SUX ETT AND ORALLY. COMPLETE BED BATH GIVEN. O2 SAT 87%
--- NOTE | 2020-11-17 02:30 | NUR ---
TURNED TO PRONE POSITION WITH ASSIST OF 3. O2 SAT GRADUALLY INCREASED TO THE 90'S.
--- NOTE | 2020-11-17 03:00 | NUR ---
VSS. O2 SAT 97% IN PRONE POSITION. MONITOR SR, HR 80'S.
--- NOTE | 2020-11-17 04:00 | NUR ---
CONTINUES IN PRONE POSITION. VSS. O2 SAT 94-96% ST ON MONITOR.
[2020-11-17 05:33] LABS: HEMATOCRIT 41.2 % (37.0-47.0); HEMOGLOBIN 13.1 g/dl (12.0-16.0); IMMATURE GRANULOCYTES 0.6 % (0.0-5.0); MEAN CELL VOLUME 92.6 fL CALC (80.0-100.0); MEAN CORPUSCULAR HGB 29.4 pG CALC (26.0-32.0); MEAN CORPUSCULAR HGB CONC 31.8 g/dL CAL (32.0-36.0); NEUT# 7.68 thou/uL (2.00-7.15); RED BLOOD COUNT 4.45 mill/uL (4.20-5.60); RED CELL DISTRI WIDTH 15.5 % (11.5-15.5)
[2020-11-17 05:56] LABS: ALBUMIN 2.6 g/dL (3.2-5.0); ANION GAP 6 (6-22 (CALC)); BUN 30 mg/dL (7-17); BUN/CREATININE RATIO 72 (12-20 (CALC)); C-REACTIVE PROTEIN 5.7 mg/dL (0-0.9); CARBON DIOXIDE 39 mmol/l (22-30); CHLORIDE 104 mmol/l (95-108); CREATININE 0.4 mg/dL (0.5-1.0); GFR > 60 ML/MIN (>=60 (CALC)); GFR FOR AFR.AMER. > 60 ML/MIN (>=60 (CALC)); POTASSIUM 2.9 mmol/l (3.5-5.1); SGOT/AST 52 u/l (14-36); SODIUM 146 mmol/l (137-146); TOTAL PROTEIN 5.6 g/dL (6.3-8.2)
--- NOTE | 2020-11-17 06:00 | NUR ---
REMAINS INTUBATED AND SEDATED. PROPOFOL CONTINUES AT 30 MCG/KG/MIN AND VERSED AT 1 MG/HR. RASS -4. O2 SAT 95% SR ON MONITOR. CONTINUES RESTING IN PRONE POSITION.
[2020-11-17 06:01] LABS: ALKALINE PHOSPHATASE 198 u/l (38-126); BILIRUBIN, TOTAL 0.9 mg/dL (0.0-1.4)
--- NOTE | 2020-11-17 07:50 | NUR ---
pt intubated and sedated; no apparent distress noted; assessment completed at this time; no signs of pain noted; no n/v noted; resp even and unlabored; lungs clear/ diminished bases; skin color wnl; vent intact and maintained with settings of AC mode, rate 28, TV 390, peep 8.0, FiO2 of 60%; hr reg; weak pedal pulses; left foot cool to touch; sr on monitor; gernalized edema noted to ble; abd soft; bs hypoactive; no bm noted per television script writer; og tube intact with greenish/yellow gastric content noted; placement verified via air insert/ auscult; tesfaye to gravity draining sediment tea colored urine; TLC patent to left subclav with propofol infusing at 30mcg/kg/min; versed at 1mg/hr; no redness or edema noted at site; scs intact; air mattress intact; pt proned; will continue to monitor
--- NOTE | 2020-11-17 08:15 | NUR ---
remains intubated and sedated; restraints reinforced; propofol titrated to 20mcg/kg/min; tesfaye to gravity; remains proned; will continue to monitor
--- NOTE | 2020-11-17 09:15 | NUR ---
Dr Walter present at bedside to assess pt
--- NOTE | 2020-11-17 10:00 | NUR ---
intubated and sedated; no apparent distress noted; proned; extremities repositioned; iv intact and patent; sr on monitor; tesfaye to gravity; air mattress; will continue to monitor
--- NOTE | 2020-11-17 11:10 | NUR ---
received call from denys Reinoso; update provided
--- NOTE | 2020-11-17 12:00 | NUR ---
remains proned; oral care; tongue coated/white; tesfaye to gravity; sr on monitor; vent intact and maintained; tesfaye to gravity; will continue to monitor
--- NOTE | 2020-11-17 14:00 | NUR ---
pt repositioned to supine x4 staff; tolerated well; iv intact; no redness or edema noted at site; sr on monitor; propofol gtt placed on hold for awakening trial; tesfaye to gravity; vent intact and maintained; will continue to monitor
--- NOTE | 2020-11-17 16:00 | NUR ---
intubated; iv intact and patent; tesfaye to gravity; repositioned; vent intact and maintained; sedation remains on hold; will continue to monitor
--- NOTE | 2020-11-17 18:00 | NUR ---
intubated and sedated; propofol and versed continues; vent intact and maintained; iv patent; tesfaye to gravity; air mattress; sr on monitor;
--- NOTE | 2020-11-17 19:00 | NUR ---
BEDSIDE REPORT RECEIVED FROM Janine CARBONE RN, CARE OF PT ASSUMED AT THIS TIME.
--- NOTE | 2020-11-17 20:30 | NUR ---
PT SEMIFOWLERS ON AIR MATTRESS. SEDETAED. B/L SOFT WRIST RESTRAINTS IN PLACE. SCDS ON. INTUBATED 8.0 ET TAPED 23CM AT THE LIP. A/C ON VENT WITH FIO2 60% RATE 28, PEEP 8, TV 390. SP02 97%. LUNGS SOUNDS CLEAR AND DIMINISHED. OG TUBE IN PLACE TO LIS. L-SUBCLAVIAN TLC PATENT, INFUSING 1/2NS W/ 20KCL @ 100, PROPOFOL AT 30MCG/KG/MIN, VERSED AT 10MG/H. POSITIVE FOR BLOOD RETURN. SR80S ON MONITOR. NIBP 127/81mmHg. TEMP 97.8. ET SUCTION PERFORMED. NO SECRETIONS. POSITIVE GAG REFLEX. ORAL CARE PERFORMED. BLUNT SECURED TO LEG WITH TUBING UNKINKED AND UNOBSTRUCTED, DRAINING YELLOW URINE. COVID-19 ISOLATION PRECAUTIONS MAINTAINED. BED LOCKED IN LOW POSITION WITH BED RAILS UP X2.
--- NOTE | 2020-11-17 22:00 | NUR ---
CONFERENCED WITH Gina ALVARADO PETROLEUM REFINING FIRER REGARDING PT'S RESPIRATORY STATUS AND PLAN OF CARE. PT'S SP02 REMAINS 97%. NO CHANGES TO VENT SETTINGS. WILL CONTINUE COLLABARATIVE MONITORING OF PT'S RESPIRATORY STATUS.
--- NOTE | 2020-11-17 23:48 | NUR ---
POINT OF CARE GLUCOSE 112 mg/Dl.
[2020-11-18] VITALS (24 sets, daily range): BP systolic 88–126; BP diastolic 58–81
--- NOTE | 2020-11-18 05:25 | NUR ---
AM LABS COLLECTED FROM [facility] T[facility].
--- NOTE | 2020-11-18 05:59 | NUR ---
Jw YOUNGBLOOD RT IN ROOM FOR PCXR.
[2020-11-18 06:25] LABS: HEMATOCRIT 38.6 % (37.0-47.0); HEMOGLOBIN 12.2 g/dl (12.0-16.0); IMMATURE GRANULOCYTES 0.7 % (0.0-5.0); MEAN CELL VOLUME 93.5 fL CALC (80.0-100.0); MEAN CORPUSCULAR HGB 29.5 pG CALC (26.0-32.0); MEAN CORPUSCULAR HGB CONC 31.6 g/dL CAL (32.0-36.0); NEUT# 4.68 thou/uL (2.00-7.15); RED BLOOD COUNT 4.13 mill/uL (4.20-5.60); RED CELL DISTRI WIDTH 15.5 % (11.5-15.5)
[2020-11-18 06:35] LABS: ALBUMIN 2.5 g/dL (3.2-5.0); ALKALINE PHOSPHATASE 196 u/l (38-126); ANION GAP 6 (6-22 (CALC)); BILIRUBIN, TOTAL 0.6 mg/dL (0.0-1.4); BUN 31 mg/dL (7-17); BUN/CREATININE RATIO 85 (12-20 (CALC)); CARBON DIOXIDE 37 mmol/l (22-30); CHLORIDE 106 mmol/l (95-108); CREATININE 0.4 mg/dL (0.5-1.0); GFR > 60 ML/MIN (>=60 (CALC)); GFR FOR AFR.AMER. > 60 ML/MIN (>=60 (CALC)); POTASSIUM 3.2 mmol/l (3.5-5.1); SGOT/AST 47 u/l (14-36); SODIUM 146 mmol/l (137-146); TOTAL PROTEIN 5.4 g/dL (6.3-8.2)
--- NOTE | 2020-11-18 06:45 | NUR ---
REPORT RECEIVED FROM PRITESH NICHOLSON. CARE ASSUMED.
--- NOTE | 2020-11-18 07:00 | NUR ---
CALL FROM RADIOLOGY TO ADVANCE OG TUBE 15-18 CM. OG TUBE ADVAMCED DIRECTED.
--- NOTE | 2020-11-18 07:15 | NUR ---
PATIENT RESTING IN BED INTUBATED AND SEDATED AT THIS TIME. VSS ON MONITOR. SHIFT ASSESSMENT COMPLETED AT THIS TIME. IV PATENT X1. WILL CONTINUE TO MONITOR.
--- NOTE | 2020-11-18 07:40 | NUR ---
DAILY AWAKENING TRIAL COMPLETED AT THIS TIME. SEE INTERVENTIONS.
--- NOTE | 2020-11-18 08:50 | NUR ---
WEANING TRIAL UNSUCCESSFUL WITH RT AT THIS TIME. RESP RATE IN THE 60S. TIDAL VOLUME NOT GREATER THAN 170. PATIENT RESEDATED AT THIS TIME. DR SHI NOTIFIED.
--- NOTE | 2020-11-18 09:00 | NUR ---
DR SHI AT BEDSIDE AT THIS TIME. PLAN OF CARE DISCUSSED NEW ORDERS RECEIVED.
--- NOTE | 2020-11-18 09:57 | NUR ---
PER PHYSICIAN REQUEST WEANING TRIAL PERFORMED BY RT. SEDATION WAS STOPPED AND PATIENT WAS ALLOWED TIME TO WAKE FOR TRIAL. PATIENT DID TURN HEAD TOWARD THERAPIST WHEN ASKED, BUT WOULD NOT SQUEEZE HAND ON COMMAND. DURING TRIAL MULTIPLE ATTEMPTS WERE MADE TO ASK THE PATIENT TO SLOW THEIR BREATHING DOWN AND TAKE DEEPER BREATHES. VT AVERAGED 175ML AT A RATE OF 60BPM REGARDLESS OF COMMANDS TO TAKE SLOWER DEEPER BREATHES. VITAL SIGNS REMAINED WITHIN NORMAL LIMITS THROUGHOUT THE TRIAL. PT ALSO HAD SUPRASTERNAL RETRACTING DURING BREATHING EFFORT ON THE TRIAL. PT RETURNED TO PREVIOUS SETTINGS AND RN WAS UPDATED ON FINDINGS. AT THIS TIME, PT DOES NOT MEET CRITERIA FOR SUCCESSFUL EXTUBATION.
--- NOTE | 2020-11-18 11:00 | NUR ---
PATIENT RESTING IN BED INTUBATED AND SEDATED. VSS ON MONITOR. WILL CONTINUE TO MONITOR.
--- NOTE | 2020-11-18 12:00 | NUR ---
PATIENT RESTING IN BED INTUBATED AND SEDATED. VSS ON MONITOR. WILL CONTINUE TO MONITOR CLOSELY.
--- NOTE | 2020-11-18 13:00 | NUR ---
BOLUS TUBE FEEDING GIVEN AT THIS TIME. PT TOLERATED WELL.
--- NOTE | 2020-11-18 14:00 | NUR ---
PATIENT RESTING IN BED INTUBATED AND SEDATED AT THIS TIME. VSS ON MONITOR. WILL CONTINUE TO MONITOR.
--- NOTE | 2020-11-18 16:00 | NUR ---
PATIENT RESTING IN BED INTUBATED AND SEDATED AT THIS TIME. VSS ON MONITOR. WILL OCNTINUE TO MONITOR
--- NOTE | 2020-11-18 17:20 | NUR ---
PATIENT GIVEN COMPLETE BED BATH AND LINEN CHANGE AT THIS TIME. PATIENT TOLERATED WELL.
--- NOTE | 2020-11-18 18:00 | NUR ---
TUBE FEED COMPLETED AT THIS TIME. PT TOLERATED WELL. NO RESIDUAL PRIOR TO FEED
--- NOTE | 2020-11-18 19:00 | NUR ---
REPORT RECEIVED FROM Rebecca CAM RN, CARE OF PT ASSUMED AT THIS TIME.
--- NOTE | 2020-11-18 20:20 | NUR ---
PT SEMIFOWLERS ON AIR MATTRESS. SEDETAED. B/L SOFT WRIST RESTRAINTS IN PLACE. SCDS ON. INTUBATED 8.0 ET TAPED 23CM AT THE LIP. A/C ON VENT WITH FIO2 60% RATE 28, PEEP 8, TV 390. SP02 96%. LUNGS SOUNDS CLEAR AND DIMINISHED. OG TUBE IN PLACE TO LIS. L-SUBCLAVIAN TLC PATENT, INFUSING PROPOFOL AT 30MCG/KG/MIN, VERSED AT 10MG/H. POSITIVE FOR BLOOD RETURN. ST 104. ON MONITOR. NIBP 112/81mmHg. TEMP 97.4. ET SUCTION PERFORMED. NO SECRETIONS. POSITIVE GAG REFLEX. ORAL CARE PERFORMED. BLUNT SECURED TO LEG WITH TUBING UNKINKED AND UNOBSTRUCTED, DRAINING AVA URINE. COVID-19 ISOLATION PRECAUTIONS MAINTAINED. BED LOCKED IN LOW POSITION WITH BED RAILS UP X2.
--- NOTE | 2020-11-18 23:40 | NUR ---
POINT OF CARE GLUCOSE 172mg/dl.
[2020-11-19] VITALS (24 sets, daily range): BP systolic 94–136; BP diastolic 58–89
--- NOTE | 2020-11-19 05:09 | NUR ---
Jw YOUNGBLOOD RT IN ROOM FOR PCXR.
--- NOTE | 2020-11-19 05:27 | NUR ---
Gina ALVARADO MACHINERY REPAIR MAINTENANCE SUPERVISOR COLLECTING ABG. AM LABS COLLECTED VIA L-SUBCLAV TLC. POINT OF CARE GLUCOSE 172mg/dl. ORAL SUCTION AND ORAL CARE PERFORMED.
[2020-11-19 06:40] LABS: HEMATOCRIT 40.8 % (37.0-47.0); HEMOGLOBIN 12.9 g/dl (12.0-16.0); IMMATURE GRANULOCYTES 0.6 % (0.0-5.0); MEAN CELL VOLUME 94.2 fL CALC (80.0-100.0); MEAN CORPUSCULAR HGB 29.8 pG CALC (26.0-32.0); MEAN CORPUSCULAR HGB CONC 31.6 g/dL CAL (32.0-36.0); NEUT# 7.43 thou/uL (2.00-7.15); RED BLOOD COUNT 4.33 mill/uL (4.20-5.60); RED CELL DISTRI WIDTH 15.6 % (11.5-15.5)
--- NOTE | 2020-11-19 06:45 | NUR ---
REPORT RECEIVED FROM PRITESH NICHOLSON. CARE ASSUMED.
[2020-11-19 07:02] LABS: ANION GAP 5 (6-22 (CALC)); BUN 38 mg/dL (7-17); BUN/CREATININE RATIO 90 (12-20 (CALC)); C-REACTIVE PROTEIN 3.5 mg/dL (0-0.9); CARBON DIOXIDE 38 mmol/l (22-30); CHLORIDE 106 mmol/l (95-108); CREATININE 0.4 mg/dL (0.5-1.0); GFR > 60 ML/MIN (>=60 (CALC)); GFR FOR AFR.AMER. > 60 ML/MIN (>=60 (CALC)); POTASSIUM 3.5 mmol/l (3.5-5.1); SODIUM 146 mmol/l (137-146)
--- NOTE | 2020-11-19 07:20 | NUR ---
PATIENT RESTING IN BED INTUBATED AND SEDATED AT THIS TIME. SHIFT ASSESSMENT COMPLETED AT THIS TIME. IV PATENT X1. VSS ON MONITOR. WILL CONTINUE TO MONITOR CLOSELY.
--- NOTE | 2020-11-19 08:30 | NUR ---
DR SHI AT BEDSIDE AT THIS TIME. PLAN OF CARE DISCUSSED. NEW ORDERS RECEIVED.
--- NOTE | 2020-11-19 10:00 | NUR ---
PATIENT RESTING IN BED INTUBATED AND SEDATED AT THIS TIME. VSS ON MONITOR. WILL CONTINNUE TO MONITOR
--- NOTE | 2020-11-19 12:00 | NUR ---
PATIENT RESTING IN BED INTUBATED AND SEDATED AT THIS TIME. VSS ON MONITOR. WILL CONTINUE TO MONITOR.
--- NOTE | 2020-11-19 13:41 | NUR ---
PHONED PATIENT DAUGHTER BATSHEVA TO PROVIDE UPDATE.
--- NOTE | 2020-11-19 15:00 | NUR ---
RT AT BEDSIDE AT THIS TIME TRYING PATIENT ON SPONTANEOUS BREATHING TRIALS. PATIENT TAKING LOW TIDAL VOLUMES AT THIS TIME. WILL OCNTINUE TO MONITOR
--- NOTE | 2020-11-19 15:47 | NUR ---
ATTEMPTED WEANING TRIAL AFTER A PROLONGED TIME OFF SEDATION. PT DID NOT FOLLOW ANY COMMANDS. PT CONTINUED TO BREATH RAPID AND SHALLOW DESPITE COMMANDS TO TAKE DEEPER SLOWER BREATHES. VT OF 175ML WITH A 65 BPM RATE. PT DOES NOT MEET CRITERIA FOR EXTUBATION AT THIS TIME.
--- NOTE | 2020-11-19 18:08 | NUR ---
DAUGHTER PHONED FOR UPDATE. UPDATE PROVIDED. PATIENT RESTING IN BED INTUBATED AND SEDATED. WILL CONTINUE TO MONITOR.
--- NOTE | 2020-11-19 19:00 | NUR ---
REPORT RECEIVED Rebecca CAM RN. CARE OF PT ASSUMED AT THIS TIME. Janine DURAN CNA ASSIGNED TO PT CARE.
--- NOTE | 2020-11-19 19:30 | NUR ---
ORAL CARE COMPLETED. FACE WASHED WITH WARM WASH CLOTH. MOUTH MOISTURIZER APPLIED. ET SUCTION PERFORMED. COUGH/GAG REFLEX PRESENT. SUCTION RESULTS IN SMALL THICK AMOUNT SPUTUM.
--- NOTE | 2020-11-19 21:15 | NUR ---
PT ASSISTED BY Janine DURAN CNA FOR BED BATH AND LINEN/GOWN CHANGE.
[2020-11-20] VITALS (26 sets, daily range): BP systolic 90–145; BP diastolic 62–119
--- NOTE | 2020-11-20 03:25 | NUR ---
PT BATHED, BARIER CREAM APPLIED TO BACKSIDE. SKIN GROSSLY INTACT. CLEAN GOWN APPLIED. ORAL CARE COMPLETED. ORAL AND ET SUCTION PERFORMED. BLUNT EMPTIED OF 1200 DARK AVA HAZY URINE. ASSISTED BY Janine DURAN CNA.
--- NOTE | 2020-11-20 05:10 | NUR ---
[facility]
--- NOTE | 2020-11-20 05:12 | NUR ---
Gina ALVARADO PROCESS ARCHITECT IN ROOM COLLECTING ABG.
--- NOTE | 2020-11-20 05:15 | NUR ---
ZERO RESIDUAL FROM OG, 475ML PULMOCARE THROUGH OG FOLLOWED BY 200ML H20 FLUSH.
--- NOTE | 2020-11-20 05:25 | NUR ---
POINT OF CARE GLUCOSE 108mg/dl
--- NOTE | 2020-11-20 05:34 | NUR ---
Jw YOUNGBLOOD RT IN ROOM FOR PCXR.
[2020-11-20 05:54] LABS: HEMATOCRIT 38.1 % (37.0-47.0); HEMOGLOBIN 11.8 g/dl (12.0-16.0); MEAN CELL VOLUME 95.3 fL CALC (80.0-100.0); MEAN CORPUSCULAR HGB 29.5 pG CALC (26.0-32.0); NEUT# 5.7 thou/uL (2.00-7.15); RED CELL DISTRI WIDTH 15.6 % (11.5-15.5)
[2020-11-20 06:08] LABS: ANION GAP 3 (6-22 (CALC)); BUN 28 mg/dL (7-17); BUN/CREATININE RATIO 93 (12-20 (CALC)); CARBON DIOXIDE 39 mmol/l (22-30); CHLORIDE 107 mmol/l (95-108); CREATININE 0.3 mg/dL (0.5-1.0); GFR > 60 ML/MIN (>=60 (CALC)); GFR FOR AFR.AMER. > 60 ML/MIN (>=60 (CALC)); MAGNESIUM 2.3 mg/dL (1.6-2.3); POTASSIUM 3.2 mmol/l (3.5-5.1); SODIUM 146 mmol/l (137-146)
--- NOTE | 2020-11-20 06:24 | NUR ---
CALL RECEIVED FROM BATSHEVA, PT'S DAUGHTER. COMMUNICATION CODE PROVIDED. UPDATES ON PT'S STATUS PROVIDED TO BATSHEVA REQUESTED.
--- NOTE | 2020-11-20 06:38 | NUR ---
PT COUGHING. EYES OPEN. APPEARS IN DISTRESS. VERSED GTT RESTARTED AT 10ML/H. ET SUCTION PERFORMED. COUGHING AND GAGGING RESULTS IN APPROX 50ML EMESIS. ORAL SUCTION PERFORMED. ORAL CARE PERFORMED. PT CALMER. SPO2 97% ST 105 ON MONITOR. NO MORE COUGH OR EMESIS.
--- NOTE | 2020-11-20 07:30 | NUR ---
SHIFT CHANGE REPORT RECEIVED PATIENT IS SEDATED. WILL CONTINUE TO MONITOR.
--- NOTE | 2020-11-20 09:00 | NUR ---
ROUNDED WITH DR SHI INFORMED HIM OF HER HAVING MOUTH THRUSH AND SUGGESTED NYSTATIN.
--- NOTE | 2020-11-20 09:30 | NUR ---
TUBE FEED PROVIDED 1.5 PULMOCARE WITH 200ML FLUSH. POTASSIUM WAS 3.2 REPLACEMENT WAS GIVE ON 20MEQ. PATIENT IS ABLE TO OPEN EYES ON COMMAND. ORAL HYGIENE WAS PROVIDED. PATIENT HAD A BM MEDIUM SIZE VERY LOOSE BROWN. CHANGED AND REPOSITIONED. WILL CONTINUE TO MONITOR.
--- NOTE | 2020-11-20 09:45 | NUR ---
SPONTANEOUS AWAKENING AND BREATHING TRIAL STARTED BY TITRATING PROPOFOL GTT.
--- NOTE | 2020-11-20 11:12 | NUR ---
HR AND RR INCREASED. PT PLACED BACK ON PREVIOUS VENT SETTINGS. WEANING TRIAL STOPPED.
--- NOTE | 2020-11-20 11:25 | NUR ---
SPONTANEOUS AWAKENING AND BREATHING TRIAL FAILED PATIENT WAS PUT BACK ON PROPOFOL GTT. PATINETS HEART RATE INCREASE TO 120S AND BLOOD PRESSURE INCREASE SYSTOLIC INCREASED TO 170. HER WOB WAS INCREASED IN THE 50S. HER BREATHING WAS SHALLOW AND FAST RESPITORY THERAPIST TURN AUTO VENT BACK ON. WILL CONTINUE TO MONITOR AND INCREASE PROPOFOL IF NEED CURRENT ON 15 MCG/KG/MIN. WILL CONTINUE TO MONITOR.
--- NOTE | 2020-11-20 17:26 | NUR ---
PATIENTS DAUGHTER UPDATED ON CONDITION AND INFORMED OF BREATHING TRIAL DONE. PATIENTS FIO2 DECREASED TO 50%.
--- NOTE | 2020-11-20 18:00 | NUR ---
HEART RATE HAS BEEN ELEVATED DR SHI NOTIFIED [place] ADDED.
--- NOTE | 2020-11-20 20:15 | NUR ---
PT SEMIFOWLERS ON AIR MATTRESS. SEDETAED. B/L SOFT WRIST RESTRAINTS IN PLACE. SCDS ON. INTUBATED 8.0 ET TAPED 23CM AT THE LIP. A/C ON VENT WITH FIO2 50% RATE 28, PEEP 8, TV 390. SP02 97%. LUNGS SOUNDS CLEAR AND DIMINISHED. OG TUBE IN PLACE TO LIS. L-SUBCLAVIAN TLC PATENT, INFUSING PROPOFOL AT 25MCG/KG/MIN, VERSED AT 10MG/H. POSITIVE FOR BLOOD RETURN. ST 112. ON MONITOR. NIBP 116/81mmHg. TEMP 97.4. ET SUCTION PERFORMED. NO SECRETIONS. POSITIVE GAG REFLEX. ORAL CARE PERFORMED. BLUNT SECURED TO LEG WITH TUBING UNKINKED AND UNOBSTRUCTED, DRAINING AVA URINE. COVID-19 ISOLATION PRECAUTIONS MAINTAINED. BED LOCKED IN LOW POSITION WITH BED RAILS UP X2.
--- NOTE | 2020-11-20 21:48 | NUR ---
PT COUGHING AND GAGGING. MOVING HEAD FROM SIDE TO SIDE. ET TUBE MOSES APPEARS LOOSE. Fabiola ROBERSON RRT CALLED INTO ROOM. STANDING OUTSIDE ROOM STATS "IT'S FINE." ET SUCTION PERFORMED. SEDATION INCREASED. VERSED TO 2MG/H AND PROPOFOL TO 30MCG/KG/MIN. WILL CON'T TO MONITOR.
[2020-11-21] VITALS (21 sets, daily range): BP systolic 90–156; BP diastolic 60–100
--- NOTE | 2020-11-21 05:00 | NUR ---
PULMOCARETUBE FEED ADMINISTERED. 8 OZ BOTTLE. 400ML FREE H20. BEDBATH AND LINEN CHANGE COMPLETED. ORAL CARE AND ORAL SUCTIONING PERFORMED. ET SUCTION PERFORMED. MODERATE AMOUNT THICK YELLOW/GARCIA SPUTUM. LABS DRAWN VIA TLC.
--- NOTE | 2020-11-21 05:43 | NUR ---
Fabiola ROBERSON OIL DEVELOPER IN ROOM COLLECTING ABG.
--- NOTE | 2020-11-21 06:41 | NUR ---
PT RECIEVED ON ALL DOCUMENTED PARAMETERS. NO ACUTE DISTRES NOTED AT THIS TIME. SCIENTIFIC PUBLICATIONS EDITOR TO MONITOR.
--- NOTE | 2020-11-21 06:45 | NUR ---
REPORT RECEIVED FROM PRITESH NICHOLSON. CARE ASSUMED.
--- NOTE | 2020-11-21 07:00 | NUR ---
PATIENT RESTING IN BED INTUBATED AND SEDATED AT THIS TIME. SHIFT ASSESSMENT COMPLETED AT THIS TIME. IV PATENT X1. CENTRAL LINE DRESSING CHANGE COMPLETED AT THIS TIME USING STERILE TECHNIQUE. VSS ON MONITOR. WILL CONTIUE TO MONITOR.
[2020-11-21 07:13] LABS: HEMOGLOBIN 12.1 g/dl (12.0-16.0); IMMATURE GRANULOCYTES 0.8 % (0.0-5.0); MEAN CELL VOLUME 96.2 fL CALC (80.0-100.0); MEAN CORPUSCULAR HGB 29.1 pG CALC (26.0-32.0); MEAN CORPUSCULAR HGB CONC 30.3 g/dL CAL (32.0-36.0); NEUT# 7.57 thou/uL (2.00-7.15); RED BLOOD COUNT 4.16 mill/uL (4.20-5.60); RED CELL DISTRI WIDTH 15.7 % (11.5-15.5)
[2020-11-21 07:15] LABS: ANION GAP 4 (6-22 (CALC)); BUN 22 mg/dL (7-17); BUN/CREATININE RATIO 56 (12-20 (CALC)); CARBON DIOXIDE 38 mmol/l (22-30); CHLORIDE 105 mmol/l (95-108); CREATININE 0.4 mg/dL (0.5-1.0); GFR > 60 ML/MIN (>=60 (CALC)); GFR FOR AFR.AMER. > 60 ML/MIN (>=60 (CALC)); SODIUM 143 mmol/l (137-146)
[2020-11-21 07:21] LABS: POTASSIUM 3.9 mmol/l (3.5-5.1)
--- NOTE | 2020-11-21 08:15 | NUR ---
DR SHI AT BEDSIDE. PLAN OF CARE DISCUSSED. NEW ORDERS RECEIVED.
--- NOTE | 2020-11-21 08:40 | NUR ---
RT AT BEDSIDE FOR SPONTANEOUS BREATHING TRIALS.
--- NOTE | 2020-11-21 09:31 | NUR ---
weaned peep as per pt spo2. everett well at this time. metal solderer to monitor.
--- NOTE | 2020-11-21 09:35 | NUR ---
sbt initiated and terminated c/in 3 min as per pt rr > 54. rsbi >120. nif and vs unable to perform. unable to manage/clear own airway or follow commands at this time. rn and md aware. dip tanker placed back on prior settings. NAD. VSS. weaned paramters as pt spo2 wnl.
--- NOTE | 2020-11-21 09:52 | NUR ---
PATIENT REMAINS INTUBATED AT THIS TIME. OFF OF SEDATION AT THIS TIME. AWAITING CT SCAN. VSS ON MONITOR.
--- NOTE | 2020-11-21 10:50 | NUR ---
PATIENT TO CT SCAN VIA BED ACCOMPANIED BY NURSE AND RESPIRATORY THERAPY
--- NOTE | 2020-11-21 11:20 | NUR ---
PATIENT RETURNS TO [facility] BED [address].
--- NOTE | 2020-11-21 12:24 | NUR ---
WEANED PEEP AND FIO2 TOLERATED. RN AWARE.
--- NOTE | 2020-11-21 12:24 | NUR ---
PT VENTILATING WELL C NAD VSS. ORE BUYER TO MONITOR.
--- NOTE | 2020-11-21 13:10 | NUR ---
PATIENT RESTING COMFORTABLY IN BED. INTUBATED AND SEDATED. WILL CONTINUE TOMONITOR.
--- NOTE | 2020-11-21 13:39 | NUR ---
PHONED [facility] SPOKE WITH GLADYS. INFO GIVEN TO INITIATE TRANSFER.
--- NOTE | 2020-11-21 14:30 | NUR ---
DAUGHTER OUTISDE OF DOOR TO SEE PATIENT.WAIVER OBTAINED. UPDATES GIVEN. DAUGHTER VERY UPSET. EMOTIONAL SUPPORT GIVEN.
--- NOTE | 2020-11-21 16:05 | NUR ---
PATIENT RESTING IN BED INTUBATED AND SEDATED AT THIS TIME. VSS ON MONITOR. WILL CONTINUE TO MONITOR.
--- NOTE | 2020-11-21 17:46 | NUR ---
WEANED PER SPO2. DRILL OPERATOR PNEUMATIC TO MONITOR.
--- NOTE | 2020-11-21 17:51 | NUR ---
PATIENT RESTING IN BED INTUBATED AND SEDATED AT THIS TIME. VSS ON MONITED. WILL CONTINUE TO MONITOR.
--- NOTE | 2020-11-21 20:00 | NUR ---
RESTING IN BED. ON VENT, SETTINGS DOUMENTED IN INTERVENTIONS. O2 SAT 87% WADNER/RT IN WITH PATIENT LAVAGED ETT AND SUX ETT AND ORALLY FOR LARGE AMOUNT OF SECREITONS. O2 SAT PICCKED BACK UP TO 9-92% AFTER SUCTIONING. PATIENT OPENS EYES SPONTANEOUSLY. DOES NOT TRACK NOR LOOK TO SPEAKER. NOT FOLLOWING ANY COMMANDS. WILL ATTEMPT TO USE SEDATION LIGHTLY. CURRENTLY ON 15 MCG OF PROPOFOL. REPOSITIONED. JEWELRY DIPPER SHOWS ST. SCD'S IN PLACE. PATIENT RESTING ON AIR MATTRESS.
--- NOTE | 2020-11-21 20:40 | NUR ---
PATIENT DAUGHTER BATSHEVA PHONED N FOR CONDITION UPDATE. DAUGHTER UPSET AND CRYING, SUPPORT AND REASSURANCE PROVIDED.
--- NOTE | 2020-11-21 21:00 | NUR ---
RESTING WITH EYES CLOSED. O2 SAT 94%
--- NOTE | 2020-11-21 21:48 | NUR ---
PATIENT WITH EYES OPEN ON ROUNDS. DOES NOT TRACK, NOT FOLLOWING ANY DIRECTIONS. MEDICATED WITH FENTANYL ORDERED. VSS. SR-ST ON MONITOR, HR 90'S-110.
--- NOTE | 2020-11-21 23:05 | NUR ---
RESTING SUPINE WITH HOB UP 45 DEGREES. OG TUNE PLACEMENT CONFIRMED, O RESIDUL NOTED. BOLUS TF GIVEN OF 240 ML PULMOCARE FOLLOW BY 60 ML WATER. LEFT RESTING WITH HOB UP. WILL CONTINUE TO MONITOR CLOSELY.
[2020-11-22] VITALS (22 sets, daily range): BP systolic 87–168; BP diastolic 46–96
--- NOTE | 2020-11-22 00:05 | NUR ---
RESTING WITH EYES CLOSED. PROPOFOL CONTINUES AT 15 MCG. VSS. SR-ST ON MONITOR. VENT SETTINGS UNCHANGED.
--- NOTE | 2020-11-22 02:00 | NUR ---
COMPLETE BED BATH GIVEN AND LINENS CHANGED. ORAL CARE PROVIDED. SUX ETT AND ORALLY. TURNED AND REPOSITIONED. BARRIER OINTMENT APPLIED TO BUTTOCK. SLT EXCORIATION TO RIGHT RECTAL AREA.
--- NOTE | 2020-11-22 03:15 | NUR ---
OG PLACEMENT CONFIRMED. NO RESIDUAL. PULMOCARE BOLUS TF GIVEN, FLUSHED WITH WATER POST FEED. HOB UP IN SEMIFOWLERS POSITION.
--- NOTE | 2020-11-22 04:15 | NUR ---
REPOSITONED. SUX ETT AND ORALLY. SR-ST ON MONITOR.
[2020-11-22 06:14] LABS: ALBUMIN 2.7 g/dL (3.2-5.0); ALKALINE PHOSPHATASE 242 u/l (38-126); ANION GAP 6 (6-22 (CALC)); BILIRUBIN, TOTAL 0.5 mg/dL (0.0-1.4); BUN 24 mg/dL (7-17); BUN/CREATININE RATIO 67 (12-20 (CALC)); CARBON DIOXIDE 37 mmol/l (22-30); CHLORIDE 99 mmol/l (95-108); CREATININE 0.4 mg/dL (0.5-1.0); GFR > 60 ML/MIN (>=60 (CALC)); GFR FOR AFR.AMER. > 60 ML/MIN (>=60 (CALC)); HEMATOCRIT 39.4 % (37.0-47.0); HEMOGLOBIN 12.2 g/dl (12.0-16.0); IMMATURE GRANULOCYTES 0.7 % (0.0-5.0); MEAN CELL VOLUME 94.9 fL CALC (80.0-100.0); MEAN CORPUSCULAR HGB 29.4 pG CALC (26.0-32.0); NEUT# 7.57 thou/uL (2.00-7.15); RED BLOOD COUNT 4.15 mill/uL (4.20-5.60); RED CELL DISTRI WIDTH 15.2 % (11.5-15.5); SGOT/AST 82 u/l (14-36); SODIUM 138 mmol/l (137-146); TOTAL PROTEIN 5.7 g/dL (6.3-8.2)
--- NOTE | 2020-11-22 06:25 | NUR ---
OGT FOUND DISLODGED EARLIER. REPLACED #16 FR OGT WITHOUT DIFFICULTY BY Isma COLIN/RN. PLACEMENT CONFURMED.
--- NOTE | 2020-11-22 06:45 | NUR ---
REPORT RECEIVED FROM JJ NICHOLSON. CARE ASSUMED.
--- NOTE | 2020-11-22 07:00 | NUR ---
PATIENT RESTING IN BED WITH EYES OPEN. PATIENT REMAINS INTUBATED AT THIS TIME. PROPOFOL TURNED OFF AT THIS TIME. PATIENT IS RESPONSIVE AT THIS TIME. SHIFT ASSESSMENT COMPLETED AT THIS TIME. IV PATENT X1. PATIENT NODS HEADS TO QUESTIONS. PATIENT FOLLOWS SIMPLE COMMANDS. PHONED DAUGHTER BATSHEVA AND CONNECTED TO [employer] AND GAVE UPDATE AND HAD HER TALK ON THE PHONE TO MOM. ENCOURAGE PATIENT TO SLOW BREATHING DOWN WELL. WILL CONTINUE TO MONITOR.
--- NOTE | 2020-11-22 07:40 | NUR ---
sbt initiated and d/cd as per pt rr increased to 54. krrt placed on prior settings. sxn x 2 and changed hme. pt everett well at this time. nad. vss. toggle press operator to monitor.
--- NOTE | 2020-11-22 08:30 | NUR ---
MD AT BEDSIDE AT THIS TIME. PT CONTINUES BE AWAKE. PLAN OF CARE DISCUSSED. NEW ORDERS RECEIVED. WILL CONTINUE TO MONITOR.
--- NOTE | 2020-11-22 09:00 | NUR ---
PATIENT HAVING RAPID RESPIRATIONS. PATIENT PROVIDED REASSURANCE AND ENCOURAGED TO SLOW RESPIRATIONS. WILL CONTINUE TO MONITOR.
--- NOTE | 2020-11-22 09:36 | NUR ---
pt placed on sbt. everett well at this time. haulpak driver to monitor.
--- NOTE | 2020-11-22 10:19 | NUR ---
PATIENT RESTING IN BED AWAKE. PATIENT DOUGLAS TO FOLLOW VERBAL COMMANDS AT THIS TIME. VSS ON MONITOR. WILL CONTINUE TO MONITOR.
--- NOTE | 2020-11-22 10:56 | NUR ---
weand ps as per pt tolerance. nad. henson. rn aware.
--- NOTE | 2020-11-22 12:00 | NUR ---
patient remains awake and intubated. phoned patient son connected to cordless. caro talked with mother and provided encouraging words. explained that the plan is to extubate this afternoon.
--- NOTE | 2020-11-22 14:00 | NUR ---
PATIENT EXTUBATED AT THIS TIME. PATIENT PLACED ON BIPAP. PHONED Babar STEEL FOR MEDICATION FOR ANXIETY. MEDS GIVEN PER MAY. PATIENT TOLERATING BIPAP WELL. RT TO MONITOR. VSS ON MONITOR. CALL LIGHT IN REACH. WILL CONTINUE TO MONITOR.
--- NOTE | 2020-11-22 14:09 | NUR ---
ETUBATED TO CPAP +12/1.0 AND WEANED PER SPO2. PT MAURO WELL AT THIS TIME. RN AWARE. LOAN PROCESSOR TO MONITOR.
--- NOTE | 2020-11-22 16:00 | NUR ---
COMBAT SYSTEMS ENGINEER AT BEDSIDE PROVIDING PERSONAL HYGIENE AT THIS TIME. PATIENT DOING WELL. VSS ON MONITOR. CALL LIGHT IN REACH. WILL CONTINUE TO MONITOR.
--- NOTE | 2020-11-22 16:44 | NUR ---
WEANED FIO2 PER PT SPO2. MAURO WELL AT THIS TIME. FRONT END ALIGNMENT SPECIALIST TO MONITOR
--- NOTE | 2020-11-22 16:50 | NUR ---
PATIENT GIVEN TOOTHETE WITH WATER ON IT TO MOISTEN MOUTH. RT AT BEDSIDE TO WEAN BIPAP. PT TOLERATED WELL. CALL LIGHT IN REACH. WILL CONTINUE TO MONITOR.
--- NOTE | 2020-11-22 18:00 | NUR ---
PHYSICAL THERAPY AT BEDSIDE AT THIS TIME.
--- NOTE | 2020-11-22 20:30 | NUR ---
RESTING BED IN FOWLERS POSITION. OPENS EYES TO NAME. PATIENT LOOKS TO SPEAKER. NOT FOLLOWING ANY COMMANDS AT THIS TIME. RESP NON-LABORED. ON CPAP, PRESSURE OF 12, O2 50% O2 SAT 97-98% BREATH SOUNDS DIMINISHED. GENERALIZED EDEMA PRESENT. PERIPHERAL PULSES INTACT. SCD'S IN PLACE BILATERALLY. LEFT CHEST PORT PREVIOUSLY ACCESSED, DSG CDI, ALL PORTS SALINE LOCKED. VSS. ASSOCIATE STORE LEADER SHOWS SR. EXPLAINED PLAN OF CARE.
--- NOTE | 2020-11-22 21:30 | NUR ---
SPOKE WITH PATIENT DAUGHTER BATSHEVA ON PHONE AND GAVE CONDITION UPDATE.
--- NOTE | 2020-11-22 22:00 | NUR ---
VSS. TOLERATING CPAP WELL. MAINTAINING O2 SATS UPPER 90'S. SR ON MONITOR.
[2020-11-23] VITALS (21 sets, daily range): BP systolic 87–129; BP diastolic 56–90
--- NOTE | 2020-11-23 00:15 | NUR ---
PATIENT OPENS EYES TO NAME. NODDING HEAD TO ANSWER YES AND NO QUESTIONS. TURNED AND REPOSITIONED. VSS. O2 SAT MAINTIANING IN THE UPPER 90'S ON CPAP 100%
--- NOTE | 2020-11-23 02:00 | NUR ---
NO CHANGES TO REPORT. CONTINUES TO TOLERATE CPAP WELL. O2 SATS UPPER 90'S. SR ON MONITOR. VSS.
--- NOTE | 2020-11-23 04:00 | NUR ---
PATIENT OPENS EYES TO NAME. NODS HEAD TO QUESTIONS ASKED. NOT FOLLOWING COMMANDS.
--- NOTE | 2020-11-23 06:00 | NUR ---
TURNED AND REPOSITONED. ACCU CHECK 103. NO INSULIN COVERAGE REQUIRED PER SS PROTOCOL. VSS. SR ON MONITOR.
[2020-11-23 06:11] LABS: HEMATOCRIT 38.5 % (37.0-47.0); IMMATURE GRANULOCYTES 0.5 % (0.0-5.0); MEAN CELL VOLUME 94.8 fL CALC (80.0-100.0); MEAN CORPUSCULAR HGB 29.6 pG CALC (26.0-32.0); MEAN CORPUSCULAR HGB CONC 31.2 g/dL CAL (32.0-36.0); NEUT# 6.02 thou/uL (2.00-7.15); RED BLOOD COUNT 4.06 mill/uL (4.20-5.60); RED CELL DISTRI WIDTH 15.4 % (11.5-15.5)
--- NOTE | 2020-11-23 06:20 | NUR ---
BLUNT DRAINS CONCENTRATED TEA COLORED URINE.
[2020-11-23 06:25] LABS: ANION GAP 6 (6-22 (CALC)); BUN 28 mg/dL (7-17); BUN/CREATININE RATIO 89 (12-20 (CALC)); C-REACTIVE PROTEIN 3.4 mg/dL (0-0.9); CARBON DIOXIDE 37 mmol/l (22-30); CHLORIDE 102 mmol/l (95-108); CREATININE 0.3 mg/dL (0.5-1.0); GFR > 60 ML/MIN (>=60 (CALC)); GFR FOR AFR.AMER. > 60 ML/MIN (>=60 (CALC)); POTASSIUM 3.5 mmol/l (3.5-5.1); SODIUM 142 mmol/l (137-146)
--- NOTE | 2020-11-23 07:30 | NUR ---
PT IN BED. AWAKENS WHEN NAME IS CALLED. CPAP IN PLACE, O2 SUSTAINING 94%. ABLE TO ANSWER YES OR NO QUESTIONS WITH NODS. CLEAR/DIMINISHED BREATH SOUNDS UPON AUSCULTATION. ACTIVE BOWEL SOUNDS X4 QUADRANTS. NO BM NOTED AT THIS TIME. BLUNT CATHETER DRAINING VIA GRAVITY. HEEL PROTECTORS APPLIED TO BILATERAL HEELS. BILATERAL SCDS IN PLACE. PT UNABLE TO FOLLOW COMMANDS AT THIS TIME. ASSESSMENT COMPLETED. DISCUSSED POC; REINFORCEMENT NEEDED. ISOLATION PRECUATIONS IN PLACE, PT EDUCATED ON THE NEED FOR THESE PRECAUTIONS, REINFORCEMENT NEEDED.
--- NOTE | 2020-11-23 09:00 | NUR ---
DR NEVES AT BEDSIDE
--- NOTE | 2020-11-23 09:05 | NUR ---
WEANED FIO2 FROM .4 TO .3. MAURO WELL. DITCH DIGGER TO MONITOR.
--- NOTE | 2020-11-23 09:07 | NUR ---
WEANED FIO2 FROM .3 TO .285 AND CPAP FROM 12 TO 10. PT TO LWELL. MOUNTER AUTOMATIC TO MONITOR.
--- NOTE | 2020-11-23 10:00 | NUR ---
PT SLEEPING IN BED. NO DISTRESS NOTED. CPAP REMAINS IN PLACE O2 SUSTAINING 91-94%.
--- NOTE | 2020-11-23 12:00 | NUR ---
PT SLEEPING IN BED. NO DISTRESS NOTED. CPAP REMAINS IN PLACE, O2 SUSTAINING 92-93%
--- NOTE | 2020-11-23 12:35 | NUR ---
pt resting comfortably in bed. nad. vss. no changes to niv paramters at this time. no rt interventions needed at this time. reconnaissance man to monitor.
--- NOTE | 2020-11-23 14:00 | NUR ---
PT SLEEPING IN BED. NO DISTRESS NOTED. CPAP IN PLACE; O2 SUSTAINING 91-93%.
--- NOTE | 2020-11-23 15:18 | NUR ---
PHYSICAL THERAPY AT BEDSIDE
--- NOTE | 2020-11-23 15:27 | NUR ---
Patient underwent PT AAROM exercise today for B LE in supine position (patient needed maximum tactile cuing to finish exercise protocol). Patient did supine SLR, hip adduction, hip abduction, hip and knee flexion and extension, hip internal and external rotation, and ankle pumps/stretching routine for 10 reps x 2 sets with patient taking 1-2 rest periods lasting 2 to 3 minutes. Patient also did log rolling bed mobility ADLs with max A x 1 for 2 reps with constant verbal cuing.
--- NOTE | 2020-11-23 15:51 | NUR ---
PT SLEEPING IN BED. NO DISTRESS NOTED. CPAP IN PLACE. O2 SUSTAINING 92%
--- NOTE | 2020-11-23 16:32 | NUR ---
WEANED OFF OF NIV ONTO 50% VENTURI MASK. PT MAURO WELL. SPO2=94. FOLLOW COMMANDS. RN ATTEMPTED TO GIV EPT A SIP OF WATER, HOWEVER PT COULD NOT KEEP FROM POSSIBLE ASPIRATION. RN IN ROOM C BATTERY VENT PLUG INSERTER AND PT DURING THIS TIME. BATTERY VENT PLUG INSERTER TO MONITOR. NIV IN ROOM FOR PRN USE AT THIS TIME.
--- NOTE | 2020-11-23 16:35 | NUR ---
SALES REPRESENTATIVE GAS SERVICE AT BEDSIDE. PT DENIES ANY PAIN AT THIS TIME. PT ABLE TO SAY SMALL WORDS LIKE "WATER" AND "THIRSTY". ABLE TO FOLLOW COMMANDS. ABLE TO SUPERVISOR OVENS MY HANDS, AND CARDIAC CATH LAB TECHNOLOGIST LEGS.
--- NOTE | 2020-11-23 18:00 | NUR ---
PT IN BED. NO DISTRESS NOTED. VENETIAN BLIND INSTALLER PLACED VENTI MASK, REMOVED CPAP; VENETIAN BLIND INSTALLER AND THIS SEXUAL HEALTH PHYSICIAN TO MONITOR O2 CLOSELY. CURRENTLY SUSTAINING 95%. NO OTHER NEEDS AT THIS TIME. PT INFORMED OF SIO ; ORDER OBTAINED FOR IV ATIVAN 1MG Q6HRS PRN FOR ANXIETY,AGITATION. AWAITING PROFILE OF MED BY .
--- NOTE | 2020-11-23 18:33 | NUR ---
PT REMAINS ON 50% VM. HR 120, SPO2 93%.
--- NOTE | 2020-11-23 19:30 | NUR ---
RESTING IN BED IN HIGH FOWLERS POSITION. PATIENT IS AWAKE, ORIENTED TO PERSON AND PLACE. PATIENT SPEAKS IN A WHISPER. STATES THROAT IS SORE. ASSISTED WITH ICE CHIPS. RESP NON-LABORED. O2 ON PER VENTI-MASK AT 50% O2 SAT 94% BREATH SOUNDS CLEAR, DIMINISHED IN BILATERAL BASES. TRACE GENRALIZED EDEMA, IMPROVING OVER PAST FEW DAYS. BLUNT DRAINS DARK AVA URINE. HEEL PROTECTORS IN PLACE. ON AIR MATTRESS, SCDS IN PLACE. LSCTLC IN PLACE, DSG CDI. LITHOGRAPHIC PLATE MAKER SHOWS ST. DISCUSSED PLAN OF CARE.
--- NOTE | 2020-11-23 21:30 | NUR ---
PATIENT TAKING ICE CHIPS SPARINGLY. NO COUGHING NOTED. SITTING IN HIGH FOWLERS POSITION. HR 120'S. LOPRESSOR 5 MG IVP GIVEN ORDERED.
--- NOTE | 2020-11-23 22:00 | NUR ---
VSS. MONITOR NOW SR, HR 80'S.
[2020-11-24] VITALS (16 sets, daily range): BP systolic 103–134; BP diastolic 70–96
--- NOTE | 2020-11-24 00:05 | NUR ---
RESTING IN BED WITH EYES CLOSED. RESP NON-LABORED. O2 ON PER 50% VENTI-MASK O2 SAT GREATER THAN 90% ASSISTED PATIENT WITH TAKING ICE CHIPS. VSS. ST ON MONITOR.
--- NOTE | 2020-11-24 02:15 | NUR ---
SLEEPS FOR SHORT INTERVALS. RESP NON-LABORED. REMAINS ON 50% VENTI-MASK. O2 SAT 92% VOCATIONAL REHABILITATION SUPERVISOR SHOWS SR.
--- NOTE | 2020-11-24 04:00 | NUR ---
NO CHANGES TO REPORT. VSS. RESP NON-LABORED. CONTINUES ON VENTI MASK 50%
--- NOTE | 2020-11-24 06:00 | NUR ---
COMPLETE BED BATH GIVEN AND PARTIAL LINEN CHANGE. PATIENT TURNS SELF WELL FROM SIDE TO SIDE. TAKING ICE CHIPS WITH ASSISTANCE. NO COUGHING. VSS. ST ON MONITOR.
--- NOTE | 2020-11-24 09:00 | NUR ---
PT SEEN WITH VENTIMASK IN PLACE, SATS IN THE LOW 90s. PT IS ALERT, ORIENTED X 2-3. LUNGS SOUND CLEAR, SLIGHTLY DIMINISHED. PT PROVIDED ICE PER REQUEST AND NO COUGH, DOES WELL. PT APPEARS WEAK, HAS GROSS MOVEMENT IN HER ARMS BUT NOT FINE MOVEMENT IN HER FINGERS YET. BLUNT IN PLACE. DAUGHTER UPDATED ON PHONE.
--- NOTE | 2020-11-24 11:37 | NUR ---
PT SEEN BY DR NEVES THIS MORNING, DIET ADVANCED TO SOLIDS. PT PROVIDED SNACK, NEEDED TO BE FED PER LACK OF MOTOR SKILLS. PT PLACED ON HIGH FLOW CANNULA, SATS IN THE MID TO UPPER 80s SHE IS A MOUTH BREATHER AND IS RESTING NOW. TO MONITOR.
--- NOTE | 2020-11-24 12:04 | NUR ---
PT PLACED ON HFNC AT 15 LITERS AT THE REQUEST OF DR MURILLO. PT CURRENTLY MAINTAINING SATS AT 89%-91% ON 15 LITER HFNC.
--- NOTE | 2020-11-24 14:28 | NUR ---
PT USED CALL LIGHT APPROPRIATELY IN ASKING FOR BEDPAN HELP. PT REMAINS ON HIGH FLOW CANNULA AT 15 LPM, SATS IN THE MID 80s.
--- NOTE | 2020-11-24 15:46 | NUR ---
PT REMAINS ON 15 LITER HFNC, WITH SATS MAINTAINING AT 91%. RT NOTES THAT WHEN PATIENT IS ASLEEP SHE BREATHES THROUGH HER MOUTH AND SATS WILL DROP SLIGHTLY. VENTURI MASK ON STAND BY IN CASE IT IS NEEDED.
--- NOTE | 2020-11-24 16:00 | NUR ---
VENTI MASK PLACED OVER HER HIGH FLOW NASAL CANNULA IN ORDER TO PROVIDE SATS IN THE 90s. PT RESTS IN THE BED IN NO ACUTE DISTRESS.
--- NOTE | 2020-11-24 16:12 | NUR ---
PT IS NOW SLEEPING AND SATS BEGAN TO DROP ON HFNC. PT PLACED ON VENTURI MASK 50% WITH SATS RETURNING TO 92%.
--- NOTE | 2020-11-24 20:15 | NUR ---
RESTING IN BED IN SEMI-FOLWERS POSITION. PATIENT ALERT AND ORIENTED TO PERSON AND PLACE. RESP NON-LABORED. CURRENTLY ON HFNC AT 15 L AND VM 50% O2 SAT 91% BREATH SOUNDS DIMINISHED/CLEAR. LSCTLC IN PLACE, DSG CDI. SHIFT ASSESSMENT COMPLETED. ASSISTED PATIENT WITH PO FLUIDS, NO COUGHING NOTED. TOOK PO MED WITHOUT DIFFIULTY. ANSWERS QUESTIONS APPROPRIATELY. VOICE IS GETTING STRONGER. STATES THROAT IS STILL ALITTLE SORE. PLASTIC FRAME INSERTER SHOWS SR. PATIENT VEBRALIZES THAT HER HAS . EMOTIONAL SUPPORT AND REASSURANCE TO PATIENT. MEDICATED WITH XANAX ORDERED. DISCUSSED PLAN OF CARE. CALL HAYES IN REACH. PATIENT REFUSES SCD'S. ON AIR MATTRESS. AIR SCRUBBER ON IN ROOM.
--- NOTE | 2020-11-24 20:30 | NUR ---
LOPRESSOR 5 MG IVP GIVEN ORDERED FOR ST, HR 120'S-130. WILL CONTIUE TO MONITOR.
--- NOTE | 2020-11-24 21:00 | NUR ---
APOLINAR C/O BEING HOT, PROVIDED WITH FAN.
--- NOTE | 2020-11-24 22:00 | NUR ---
TURNED AND REPOSITIONED TO SIDE WITH ASSIST OF ONE. CALL HAYES IN REACH. VSS. MONITOR SR.
[2020-11-25] VITALS (12 sets, daily range): BP systolic 90–119; BP diastolic 69–88
--- NOTE | 2020-11-25 00:15 | NUR ---
RESTIGN WITH EYES CLOSED. VSS. RESP NON-LABORED.
--- NOTE | 2020-11-25 02:00 | NUR ---
NO CHANGES TO REPORT. IN NO APPARENT DISTRESS. O2 SAT 93%
--- NOTE | 2020-11-25 04:00 | NUR ---
DOZES FOR INTERVALS. VSS. RESP NON-LABORED. SR ON MONITOR.
[2020-11-25 05:07] LABS: HEMATOCRIT 41.7 % (37.0-47.0); HEMOGLOBIN 13.4 g/dl (12.0-16.0); IMMATURE GRANULOCYTES 0.5 % (0.0-5.0); MEAN CELL VOLUME 92.3 fL CALC (80.0-100.0); MEAN CORPUSCULAR HGB 29.6 pG CALC (26.0-32.0); MEAN CORPUSCULAR HGB CONC 32.1 g/dL CAL (32.0-36.0); NEUT# 4.64 thou/uL (2.00-7.15); RED BLOOD COUNT 4.52 mill/uL (4.20-5.60); RED CELL DISTRI WIDTH 15.1 % (11.5-15.5)
[2020-11-25 05:33] LABS: ANION GAP 8 (6-22 (CALC)); BUN 23 mg/dL (7-17); BUN/CREATININE RATIO 73 (12-20 (CALC)); CARBON DIOXIDE 34 mmol/l (22-30); CHLORIDE 98 mmol/l (95-108); CREATININE 0.3 mg/dL (0.5-1.0); GFR > 60 ML/MIN (>=60 (CALC)); GFR FOR AFR.AMER. > 60 ML/MIN (>=60 (CALC)); POTASSIUM 3.2 mmol/l (3.5-5.1); SODIUM 137 mmol/l (137-146)
--- NOTE | 2020-11-25 06:00 | NUR ---
RESTING WITH EYES CLOSED. VSS. SR ON MONITOR.
--- NOTE | 2020-11-25 06:45 | NUR ---
REPORT RECEIVED FROM CONTACT ACID PLANT OPERATOR. CARE ASSUMED.
--- NOTE | 2020-11-25 07:53 | NUR ---
MODERATE AMOUNT OF INCONT AT THIS TIME. 16F BLUNT CATH PLACE PER STERILE TECHNIQUE. PT TOLERATED WELL. LEG STRAP IN PLACE. TUBING PATENT. FLOWING WITH GRAVITY
--- NOTE | 2020-11-25 07:57 | NUR ---
PT REMAINS ON VENTURI MASK 50%, WHILE SLEEPING.
--- NOTE | 2020-11-25 08:15 | NUR ---
PATIENT RESTING IN BED AWAKE. PATIENT IS ALERT AND ORIENTED X3. SHIFT ASSESSMENT COMPLETED AT THIS TIME. IV PATENT X1. CALL LIGHT IN REACH. WILL CONTINUE TO MONITOR.
--- NOTE | 2020-11-25 10:22 | NUR ---
PT ON HFNC 15 LITER. REQUIRES VENTURI MASK DURING SLEEP
--- NOTE | 2020-11-25 10:40 | NUR ---
SPEECH THERAPY AT BEDSIDE WORKING WITH PT.
--- NOTE | 2020-11-25 11:34 | NUR ---
PHYSICAL THERAPY AT BEDSIDE AT THIS TIME. ASSISTED PATIENT UP TO THE CHAIR AT THIS TIME.
--- NOTE | 2020-11-25 13:23 | NUR ---
Patient is seen today for functional training and deep breathing exercises. SHe is able to get OOB and sit EOB with mod max assist of 1. Her vitals remained stable but after about 30 minutes we transferred BTB as her sats were at 90% and she was fatigued. She did practicec her 4 sec breath holds and forced expiration. She is progressing with her function although her Am Pac score is 11 and she would benefit from rehab facility to increease her strength and endurance as she is so weak she cannot feed herself
--- NOTE | 2020-11-25 13:32 | NUR ---
SPEECH THERAPY AT BEDSIDE
--- NOTE | 2020-11-25 14:30 | NUR ---
O2 TITRATED TO 10L HFNC.
--- NOTE | 2020-11-25 14:42 | NUR ---
PT MEDICATED WITH PRN TYLENOL 650MG PO PER REQUEST FOR LOWER BACK PAIN RATING 8/10 ON THE PAIN SCALE,WILL MONITOR FOR EFECTIVENESS
--- NOTE | 2020-11-25 14:42 | NUR ---
PT IN ON 15 LITER HFNC WITH SATS OF 97%. PT TOLERATING HFNC WELL.
--- NOTE | 2020-11-25 15:15 | NUR ---
O2 TITRATED TO 6L HIGH KOLE NASAL CANNULA.
--- NOTE | 2020-11-25 16:43 | NUR ---
PT IS IN 6 LITER HIGH FLOW NASAL CANNULA. SATS 94%.
--- NOTE | 2020-11-25 18:00 | NUR ---
PATIENT SITTING UP IN BED NO DISTRESS NOTED ON O2 6L HF NASAL CANNULA. CONTACT OFFICER AT BEDSIDE ASSISTING PATIENT WITH FEEDING. WILL CONTINUE TO MONITOR.R
--- NOTE | 2020-11-25 19:45 | NUR ---
RESTING IN BED IN HIGH FOWLERS POSITION. ALERT AND ORIENTED. FOLLOWS DIRECTIONS. SPEECH CLEAR WITH APPROPRIATE RESPONSE TO QUESTIONS. VSS. RESP NON-LABORED. USING O2 AT 6 L HFNC. BREATH SOUNDS DIMINISHED. TAKING PO FLUIDS WITHOUT DIFFICULTY. LSCTLC INTACT, DSG CI. SADDLE CUTTER SHOWS SR. DISCUSSED PLAN OF CARE. DENIES NEEDS AT THIS TIME. CALL HAYES IN REACH. PATIENT IS ON AN AIR MATTRESS. AIR SCRUBBER IN USE IN ROOM.
--- NOTE | 2020-11-25 20:15 | NUR ---
MEDICATED WITH XANAX ORDERED.
--- NOTE | 2020-11-25 22:00 | NUR ---
RESTING QUIETLY AND CALMLY IN BED. WATCHING TV. NO C/O VOICED. VSS.
[2020-11-26] VITALS (10 sets, daily range): BP systolic 94–119; BP diastolic 49–79
--- NOTE | 2020-11-26 00:15 | NUR ---
RESTING WITH EYES CLOSED. RESP NON-LABORED. VSS. MONITOR SR.
--- NOTE | 2020-11-26 02:00 | NUR ---
SLEEPING. VSS. RESP NON-LABORED. IN NO APPARENT DISTRESS.
--- NOTE | 2020-11-26 04:00 | NUR ---
SLEEPS FOR LONG INTERVALS. VSS.
--- NOTE | 2020-11-26 06:45 | NUR ---
REPORT RECEIVED FROM JJ NICHOLSON. CARE ASSUMED.
[2020-11-26 06:58] LABS: HEMATOCRIT 43.9 % (37.0-47.0); IMMATURE GRANULOCYTES 0.4 % (0.0-5.0); MEAN CELL VOLUME 92.4 fL CALC (80.0-100.0); MEAN CORPUSCULAR HGB 29.5 pG CALC (26.0-32.0); MEAN CORPUSCULAR HGB CONC 31.9 g/dL CAL (32.0-36.0); NEUT# 4.19 thou/uL (2.00-7.15); RED BLOOD COUNT 4.75 mill/uL (4.20-5.60); RED CELL DISTRI WIDTH 15.2 % (11.5-15.5)
[2020-11-26 07:11] LABS: ALKALINE PHOSPHATASE 256 u/l (38-126); ANION GAP 9 (6-22 (CALC)); BUN 17 mg/dL (7-17); BUN/CREATININE RATIO 67 (12-20 (CALC)); C-REACTIVE PROTEIN 0.9 mg/dL (0-0.9); CARBON DIOXIDE 33 mmol/l (22-30); CHLORIDE 99 mmol/l (95-108); CREATININE 0.3 mg/dL (0.5-1.0); GFR > 60 ML/MIN (>=60 (CALC)); GFR FOR AFR.AMER. > 60 ML/MIN (>=60 (CALC)); POTASSIUM 3.3 mmol/l (3.5-5.1); SGOT/AST 143 u/l (14-36); SODIUM 139 mmol/l (137-146); TOTAL PROTEIN 6.7 g/dL (6.3-8.2)
[2020-11-26 07:22] LABS: ALBUMIN 3.3 g/dL (3.2-5.0); BILIRUBIN, TOTAL 0.8 mg/dL (0.0-1.4)
--- NOTE | 2020-11-26 07:45 | NUR ---
PATIENT RESTING IN BED AT THIS TIME. PATIENT IS AWAKE AND ALERT AND ORIENTED X3. SHIFT ASSESSMENT COMPLETED AT THIS TIME. IV PATENT X1. CALL LIGHT IN REACH. WILL CONTINUE TO MONITOR.
--- NOTE | 2020-11-26 09:20 | NUR ---
DR OLMOS AT BEDSIDE AT THIS TIME.
--- NOTE | 2020-11-26 10:00 | NUR ---
BLUNT REMOVED. PATIENT ASSISTED UP TO BSC FOR BM. PATIENT CLEANSED. THEN ASSISTED UP TO RECLINER. PATIENT TOLERATED TRANSFER WELL. PATIENT ASSISTED IN CALLING DAUGHTER ON CELL PHONE. CALL LIGHT IN REACH. WILL CONTINUE TO MONITOR.
--- NOTE | 2020-11-26 12:00 | NUR ---
SPEECH AND OCCUPATIONAL THERAPY AT BEDSIDE AT THIS TIME. ASSISTING PATIENT IN EATING AT THIS TIME. PATIENT REMAINS UP IN RECLINER AT THIS TIME.
--- NOTE | 2020-11-26 13:06 | NUR ---
Pt received upright in bedside recliner on 5L via nasal cannula. Pt alert and oriented to place, month, date, and year. Pt assisted by occupational therapist with self-feeding of thin liquids by straw and mechanical soft solids by fork. Pt presented adequate mastication time with multiple swallows per bolus presentation. No overt s/s of penetration/aspiration appreciated. Pt's vocal quality sounded clear following PO trials. Pt's oxygen saturation decreased from 90-85% following PO trials and conversation. Oxygen saturation self-resolved within 4 minutes and cued breathing. Pt did not appear in distress during this time. Recommendations Continue Mechanical soft solids and thin liquids Aspiration precautions: HOB upright for PO intake, slow rate, small bites/sips, remain upright after meals for >30 minutes.
--- NOTE | 2020-11-26 13:55 | NUR ---
[facility] Micheline continues to present with significant weakness, impacting her ability to bring fork and 6oz beverage to mouth. Micheline was provided with mod A to flex shoulder and complete a functional reach towards plate to puncture greenbeans and scoop mashed potatoes x 5. Pt was not very hungry today and did not want to eat more beyond that. Micheline presents more alert than yesterday and was able to identify the month and day of the year and described some details about her family. PROM also provided to shoulder to prevent contractures, and patient has WNL ROM at all joints but is limited actively against gravity d/t severe wkness.
--- NOTE | 2020-11-26 15:30 | NUR ---
ORDER RECEIVED FROM DR OLMOS TO DOWNGRADE PATIENT TO MEDSUR WITHOUT TELE. DISCUSSED THAT PATIENT HR WAS ST 130S AND PATIENT O2 DROPS WITH EXERTION.
--- NOTE | 2020-11-26 15:45 | NUR ---
REPORT CALLED TO DAVID NICHOLSON ON MED SURG.
--- NOTE | 2020-11-26 16:34 | NUR ---
PT ON 6 LITER HFNC. SATS 95%
--- NOTE | 2020-11-26 16:35 | NUR ---
PT GOT TO THE MS FLOOR. TRANSFERED BY NICA. PT IN STABLE CONDITION. PT ORIENTED TO ROOM. PT IS ALERT AND ORIENTED. S1 AND S2 HEARD UPON ASCULTATION. LUNGS CLEAR. BOWELS ACTIVE IN ALL 4 QUADRANTS. PT IS COVID +. ON 3L HIGH FLOW. SKIN COLD AND DRY. PEDAL PULSES STRONG BILATERALLY. PT IS MAX FEED AND MAX ASSIST. NO PAIN INDICATED. CALL LIGHT WITHIN REACH.
--- NOTE | 2020-11-26 16:45 | NUR ---
PATIENT ASSISTED UP TO BSC TO VOID. LARGE VOID. PATIENT THEN TRANSFERRED TO [facility] VIA BED BY NURSE. DAUGHTER NOTIFIED. ALL BELONGINGS SENT WITH PATIENT.
--- NOTE | 2020-11-26 20:00 | NUR ---
PATIENT AWAKE IN BED SEMI-FOWLERS. HEELS ELEVATED. ALERT AND ORIENTED X3. VERY WEAK. REPOSITION FOR COMFORT. DENIES PAIN AT THIS TIME. O2 3L IN PLACE. NO TELEMETRY. ASSESSMENT COMPLETED AND CHARTED. BED IN LOW POSITION. CALL LIGHT WITHIN REACH.
--- NOTE | 2020-11-26 22:00 | NUR ---
TRIPLE LUMEN CENTRAL CATHETER FLUSHED X2/3. TWO OF THREE LUMENS FLUSH WITHOUT DIFFICULTY.
--- NOTE | 2020-11-26 23:12 | NUR ---
SEPSIS ALERT TRIGGERED. DR. BEYER CALLED. NEW ORDER RECEIVED. NS @ 100 ML/HR INITIATED. PATIENT RESTING QUIETLY. NO ACUTE DISTRESS OBSERVED. BED IN LOW POSITION. CALL LIGHT WITHIN REACH.
[2020-11-27] VITALS: BP 95/69
--- NOTE | 2020-11-27 | NUR ---
RESTING QUIETLY. NO ACUTE DISTRESS. IVF INFUSING. BED IN LOW POSITION. CALL LIGHT WITHIN REACH.
[2020-11-27 04:00] VITALS: BP 98/68
--- NOTE | 2020-11-27 04:10 | NUR ---
ICE WATER REQUESTED AND GOTTEN. PATIENT AWAKE IN BED. NO COMPLAINTS.
[2020-11-27 06:01] LABS: HEMATOCRIT 41.7 % (37.0-47.0); HEMOGLOBIN 13.3 g/dl (12.0-16.0); IMMATURE GRANULOCYTES 0.3 % (0.0-5.0); MEAN CELL VOLUME 93.1 fL CALC (80.0-100.0); MEAN CORPUSCULAR HGB 29.7 pG CALC (26.0-32.0); MEAN CORPUSCULAR HGB CONC 31.9 g/dL CAL (32.0-36.0); NEUT# 3.98 thou/uL (2.00-7.15); RED BLOOD COUNT 4.48 mill/uL (4.20-5.60); RED CELL DISTRI WIDTH 15.8 % (11.5-15.5)
[2020-11-27 06:28] LABS: ALBUMIN 3.1 g/dL (3.2-5.0); ALKALINE PHOSPHATASE 231 u/l (38-126); ANION GAP 6 (6-22 (CALC)); BILIRUBIN, TOTAL 0.6 mg/dL (0.0-1.4); BUN 20 mg/dL (7-17); BUN/CREATININE RATIO 71 (12-20 (CALC)); CARBON DIOXIDE 34 mmol/l (22-30); CHLORIDE 102 mmol/l (95-108); CREATININE 0.3 mg/dL (0.5-1.0); GFR > 60 ML/MIN (>=60 (CALC)); GFR FOR AFR.AMER. > 60 ML/MIN (>=60 (CALC)); POTASSIUM 3.7 mmol/l (3.5-5.1); SGOT/AST 115 u/l (14-36); SODIUM 138 mmol/l (137-146); TOTAL PROTEIN 6.3 g/dL (6.3-8.2)
--- NOTE | 2020-11-27 06:59 | NUR ---
11/26/20 PT note- patient doing much better now on 3 liters O2 NC . She has gotten OOB with nursing and presents up in bedside chair. She practiced DBE including incentive spirometer and 4 sec breath holds. She maintained o2 at 90 % sats but HR increased to 130s with standing. She was transferred BTB with max assist and positioned side lying. She did receive tapotment and worked on forced expiration as well. Am Pac score is 12 indicating she would do well in ECF to regain strength and increase her independence
--- NOTE | 2020-11-27 07:05 | NUR ---
REPORT REC FROM Zara RAMIREZ RN
[2020-11-27 08:07] VITALS: BP 108/64
--- NOTE | 2020-11-27 08:14 | NUR ---
PT SITTING IN BED. A&O X3. ELECTROLYSIS INVESTIGATOR AT BEDSIDE ATTEMPTING TO FEED PT; PT REQUESTING TO FEED HERSELF. PT ABLE TO FEED HERSELF BREAKFAST. PT ABLE TO FOLLOW COMMANDS. BILATERAL HAND REINFORCING STEEL WORKER WIRE MESH MODERATE; ABLE TO LIFT LEGS SLIGHTY OFF THE AIR MATRESS. CLEAR/DIMINISHED BREATH SOUNDS UPON AUSCULTATION. O2 VIA NC @4L IN PLACE SUSTAINING 95%. TRIPLE LUMEN LT SUBCLAVIAN IN PLACE, BLUE AND BROWN LUMENS FLUSH WITH EASE; BLUE LUMEN INFUSING IVF PER MAR ORDER. UNABLE TO FLUSH WHITE LUMEN AT THIS TIME. ACTIVE BOWEL SOUNDS X4 QUADRANTS. PT DENIES ANY PAIN AT THIS TIME. ASSESSMENT COMPLETED. DISCUSSED POC. ISOLATION PRECAUTIONS IN PLACE; PT EDUCATED ON THE NEED FOR THESE PRECAUTIONS. CALL LIGHT WITHIN REACH, PT EDUCATED ON HOW TO PROPERLY USE CALL LIGHT.
--- NOTE | 2020-11-27 10:45 | NUR ---
SCOTT OT AT BEDSIDE
--- NOTE | 2020-11-27 10:57 | NUR ---
Yash DUFF PYSICAL THERAPY AT BEDSIDE
--- NOTE | 2020-11-27 12:31 | NUR ---
DR OLMOS AND Babar STEEL APRN AT BEDSIDE DISCUSSING POC
--- NOTE | 2020-11-27 13:31 | NUR ---
PT SITTING IN CHAIR. NO DISTRESS NOTED. CALL LIGHT WITHIN REACH.
--- NOTE | 2020-11-27 15:19 | NUR ---
Micheline received in bed and appears to have recently woken up from nap. She completed functional reaching forward to grasp vanilla milkshake and bring to mouth. She was observed to lean head forward d/t increased wkness in UE. Micheline completed 5 reps of shoulder flexion to hit target (clinician's hand) on both arms and demonstrated increased fatigue at end. Shoulders bilaterally stretched in all planes. Completed walking and transfer with PT to chair where patient was left with a call light.
[2020-11-27 16:35] VITALS: BP 114/71
--- NOTE | 2020-11-27 17:47 | NUR ---
PT SITTING IN BED, SET UP FOR DINNER. O2 REMAINS AT 4L. NO OTHER NEEDS AT THIS TIME. CALL LIGHT WITHIN REACH.
--- NOTE | 2020-11-27 19:00 | NUR ---
REPORT RECEIVED FROM Meño FRY RN. CARE OF PT ASSUMED AT THIS TIME.
[2020-11-27 19:30] VITALS: BP 99/67
--- NOTE | 2020-11-27 21:35 | NUR ---
SP02 93% AT REST ON 02 AT 4L/M VIA HIGH FLOW NC. RESPIRATIONS REGULAR AND UNLABORED AT REST. PT AGREES TO NOTIFY NURSE OF ANY RESPIRATORY DISTRESS. PULMONARY HYGIENE EDUCATION REVIEWED WITH PT. L-SUBCLAVIAN TLC, DRESSING C/D/I. 2/3 PORTS PATENT WITH BLOOD RETURN. PT USING BED DUONG TO VOID. PT REQUESTS TO ATTEMPT TO GET UP TO BSC. PT ADVISED INITIAL STAND UP SHOULD BE REFFERED PHYSICAL THERAPY. SEE E-MAR FOR MEDICATION ADMINISTRATION DETAILS. MEDICATION EDUCATION PROVIDED. PT DENIES FURTHER NEEDS AT THIS TIME. BED LOCKED IN LOW POSITION WITH BEDRAILS UP X2. ITEMS AND CALL HAYES WITHIN REACH. AGREES TO CALL PRN. COVID-19 ISOLATION PRECAUTIONS MAINTAINED.
--- NOTE | 2020-11-28 00:30 | NUR ---
PT LAYING IN BED, APPEARS TO BE SLEEPING COMFORTABLY. EYES CLOSED. RESPIRATIONS REGULAR AND UNLABORED. CALL HAYES REMIANS WITHIN REACH.
[2020-11-28 04:00] VITALS: BP 112/64
--- NOTE | 2020-11-28 04:30 | NUR ---
AM LABS COLLECTED VIA BROWN PORT OF L-SUBCLAVIAN TLC. NO DIFFICULTIES. PORT FLUSHED AND SALINE LOCKED PER [facility] POLICY.
[2020-11-28 06:27] LABS: HEMOGLOBIN 12.2 g/dl (12.0-16.0); MEAN CELL VOLUME 94.3 fL CALC (80.0-100.0); MEAN CORPUSCULAR HGB 30.3 pG CALC (26.0-32.0); MEAN CORPUSCULAR HGB CONC 32.1 g/dL CAL (32.0-36.0); RED BLOOD COUNT 4.03 mill/uL (4.20-5.60); RED CELL DISTRI WIDTH 15.6 % (11.5-15.5)
[2020-11-28 06:37] LABS: ANION GAP 7 (6-22 (CALC)); BUN 13 mg/dL (7-17); BUN/CREATININE RATIO 43 (12-20 (CALC)); CARBON DIOXIDE 30 mmol/l (22-30); CHLORIDE 106 mmol/l (95-108); CREATININE 0.3 mg/dL (0.5-1.0); GFR > 60 ML/MIN (>=60 (CALC)); GFR FOR AFR.AMER. > 60 ML/MIN (>=60 (CALC)); POTASSIUM 3.6 mmol/l (3.5-5.1); SODIUM 140 mmol/l (137-146)
--- NOTE | 2020-11-28 07:15 | NUR ---
REPORT REC FROM Isma WISDOM
--- NOTE | 2020-11-28 08:05 | NUR ---
11/27/20 PT note: The patient is seen for transfer training and DBE as before. She is much more alert. She managed to ambulate about 6 feet with max assist of 1 but demonstrated possible orthostatic hypotension. Am Pac is unchanged although it should improve as she gains strength. She was assisted BTB as before Our plan is to continue DBE and improving her function by working on transfers and standing
[2020-11-28 08:30] VITALS: BP 109/64
--- NOTE | 2020-11-28 08:30 | NUR ---
PT SITTING IN BED. A&O X4. NO DISTRESS NOTED. PT CURRENTLY ON 4L VIA NC O2 SUSTAINING 96%, O2 TITRATED DOWN TO 2L O2 SUSTAINING 92-94%. O2 TO BE FREQUENTLY MONITORED FOR ANY TITRATION NEEDS. CLEAR/DIMINISHED BREATH SOUNDS UPON AUSCULTATION. ACTIVE BOWEL SOUNDS X4 QUADRANTS. PT ABLE TO FOLLOW COMMANDS. TRIPPLE LUMEN SC INPLACE; IVF CHANGED TO BROWN LUMED, UNABLE TO FLUSH OTHER LUMENS AT THIS TIME. ASSESSMENT COMPLETED. DISCUSSED POC. CALL LIGHT WITHIN REACH. ISOLATION PRECAUTIONS IN PLACE.
[2020-11-28 12:00] VITALS: BP 112/66
--- NOTE | 2020-11-28 12:00 | NUR ---
PT SITTING IN BED. NO DISTRESS NOTED. CALL LIGHT MADELEINE SAHU.
--- NOTE | 2020-11-28 14:21 | NUR ---
PT note The patient is seen for DBE and ambulation as before. She required min / mod assist of 1 for ambualtion x 10 feet with vitals stable. She did complain of mild dizziness. Her Am Pac score is 16 indicating she would do well with home health followup Our plan is to continue progressing her function
[2020-11-28 15:20] VITALS: BP 124/82
--- NOTE | 2020-11-28 16:20 | NUR ---
ZACH RECEIVED AT BEDSIDE, WATCHING TELEVISION. ZACH IS DEMONSTRATING INCREASED STRENGTH, SPEED, AND QUALITY OF MOVEMENT WHILE REACHING FORWARD X 10. ZACH PRACTICED STRAIGHT LEG RAISES X 10 ON BILAT LE FOR IMPROVED BED MOBILITY STABILITY WITH TRANSFERS. PT PRACTICED REACHING OVERHEAD WITH ER - REQUIRED MOD TACTILE ASSISTANCE TO COMPLETE D/T WKNESS. PT DEMONSTRATING IMPROVED STRENGTH IN R>L.
--- NOTE | 2020-11-28 17:58 | NUR ---
CENTRAL LINE REMOVED BY Stefani ASHBY RN PER Babar STEEL APRN ORDERS , CATHETER INTACT, BIOPATCH APPLIED. OCCLUSIVE DRESSING APPLIED. #22G RAC INITIATED BY Josie GLYNN LPN.
[2020-11-28 19:00] VITALS: BP 98/44
[2020-11-28 20:00] VITALS: BP 114/73
--- NOTE | 2020-11-28 20:00 | NUR ---
PATIENT AWAKE AND ALERT. NO COMPLAINTS OR CONCERNS AT THIS TIME
[2020-11-29] VITALS: BP 95/59
--- NOTE | 2020-11-29 00:03 | NUR ---
PATIENT ASLEEP AND RESTING COMFORTABLY.
[2020-11-29 04:00] VITALS: BP 120/62
[2020-11-29 06:12] LABS: HEMATOCRIT 39.9 % (37.0-47.0); HEMOGLOBIN 12.5 g/dl (12.0-16.0); IMMATURE GRANULOCYTES 0.3 % (0.0-5.0); MEAN CORPUSCULAR HGB 29.8 pG CALC (26.0-32.0); MEAN CORPUSCULAR HGB CONC 31.3 g/dL CAL (32.0-36.0); NEUT# 3.09 thou/uL (2.00-7.15); RED BLOOD COUNT 4.2 mill/uL (4.20-5.60); RED CELL DISTRI WIDTH 16.2 % (11.5-15.5)
--- NOTE | 2020-11-29 06:35 | NUR ---
PATIENT BLOOD SUGAR IS 127.
--- NOTE | 2020-11-29 06:45 | NUR ---
REPORT RECEIVED FROM CHAYA NICHOLSON. CARE ASSUMED.
[2020-11-29 06:58] LABS: ALBUMIN 2.8 g/dL (3.2-5.0); ALKALINE PHOSPHATASE 180 u/l (38-126); ANION GAP 10 (6-22 (CALC)); BILIRUBIN, TOTAL 0.4 mg/dL (0.0-1.4); BUN 11 mg/dL (7-17); BUN/CREATININE RATIO 34 (12-20 (CALC)); C-REACTIVE PROTEIN 1.1 mg/dL (0-0.9); CARBON DIOXIDE 27 mmol/l (22-30); CHLORIDE 106 mmol/l (95-108); CREATININE 0.3 mg/dL (0.5-1.0); GFR > 60 ML/MIN (>=60 (CALC)); GFR FOR AFR.AMER. > 60 ML/MIN (>=60 (CALC)); SGOT/AST 76 u/l (14-36); SODIUM 139 mmol/l (137-146); TOTAL PROTEIN 5.8 g/dL (6.3-8.2)
--- NOTE | 2020-11-29 07:45 | NUR ---
PATIENT RESTING IN BED AWAKE. PATIENT IS ALERT AND ORIENTED X3. SHIFT ASSESSMENT COMPLETED AT SI TIME. IV PATENT X1. PATIENT ASSISTED UP TO RECLINER AT BEDSIDE. PATIENT SET UP FOR AM MEAL. CALL LIGHT IN REACH. WILL CONTINUE TO MONITOR.
[2020-11-29 07:55] VITALS: BP 107/68
--- NOTE | 2020-11-29 09:26 | NUR ---
Micheline was received on [facility]. She was self feeding her breakfast of czech toast and oatmeal. Micheline demonstrated compensatory strategies while self feeding such as leaning forward with head and back and resting arm on armrest to bring food to mouth. Overall, Micheline is demonstrating increased strength and speed with movements indicating steady progress with each day. Micheline practiced reaching overhead with R > L strength and range.
--- NOTE | 2020-11-29 12:00 | NUR ---
PATIENT SITTING UP IN BED EATING LUNCH. NO DISTRESS NOTED. CALL LIGHT IN REACH. WILL CONTINUE TO MONITOR.
[2020-11-29 12:15] VITALS: BP 109/68
--- NOTE | 2020-11-29 15:30 | NUR ---
DC INSTRUCTIONES REVEIWED WT PATIENT. O2 TANK PROVIDED.
--- NOTE | 2020-11-29 15:45 | NUR ---
Discharge instructions given. Patient verbalizes understanding of same. Discharged in stable condition via Wheelchair to Home with staff. All belongings sent with pt.
--- NOTE | 2020-11-29 15:55 | NUR ---
PT note Patient presents up in the bedside chair. We worked on DBE as before and repeated sit to stand. She is given a HEP of DBE, ankle pumps, seated leg press. She also worked on chair pushups. Am Pac is 16 indicating she would do well with DC to home as long as family is willing to assist as she remains unstesady at times and with poor enduramce. Our plan is to continue progressive functional training
--- NOTE | 2020-12-07 14:44 | NUR ---
CALLED [employer] FOR [employer] FOR PICKUP. 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
== END 2020-11-29 15:45 | disposition home or self-care (01) | DRG 207 ==
LOC: ED 13:11 → ED-I 15:10 → ED 15:10 → ED-I 15:25 → ED 15:35 → ICU 15:36 → MS2 15:36 → ICU 11-10 14:04 → MS2 11-26 17:05
PROVIDERS: Emergency Medicine; Hospitalist; Internal Medicine; Nurse Practitioner; ADMIT Internal Medicine; ATTEND Internal Medicine
PROC: XW033E5 Introduction of Remdesivir Anti-infective into Peripheral Vein, Percutaneous Approach, New Technology Group 5 (ICD-10-PCS; principal; 2020-11-10)
PROC: 5A09357 Assistance with Respiratory Ventilation, Less than 24 Consecutive Hours, Continuous Positive Airway Pressure (ICD-10-PCS; 2020-11-11)
PROC: 5A1955Z Respiratory Ventilation, Greater than 96 Consecutive Hours (ICD-10-PCS; 2020-11-12)
PROC: 02HV33Z Insertion of Infusion Device into Superior Vena Cava, Percutaneous Approach (ICD-10-PCS; 2020-11-12)
PROC: 0BH17EZ Insertion of Endotracheal Airway into Trachea, Via Natural or Artificial Opening (ICD-10-PCS; 2020-11-12)
DX: U07.1 COVID-19 (principal); J12.82 Pneumonia due to coronavirus disease 2019; J96.01 Acute respiratory failure with hypoxia; E11.9 Type 2 diabetes mellitus without complications; M35.00 Sjogren syndrome, unspecified; M06.9 Rheumatoid arthritis, unspecified; M79.7 Fibromyalgia; M19.90 Unspecified osteoarthritis, unspecified site; E87.70 Fluid overload, unspecified; E87.6 Hypokalemia; F32.9 Major depressive disorder, single episode, unspecified; Z63.4 Disappearance and death of family member; Z79.4 Long term (current) use of insulin
CPT/HCPCS: J1650; J2060; J2250; S0164

== ENCOUNTER 2020-12-24 19:44 | Emergency (ER) | payer SELFPAY ==
[~2020-12-24] VITALS: Ht 162.6 cm; Wt 77.0 kg
[~2020-12-24 19:44] MED LIST changes: +OZEMPIC2 MG/1.5 M; +OZEMPIC4 MG; +TRESIBA100 UNIT/M
[2020-12-24] MEDS ORDERED: NAPROXEN500 MG PO (21:32)
[2020-12-24 21:45] VITALS: BP 148/78
== END 2020-12-24 21:45 | disposition home or self-care (01) | DRG 552 ==
LOC: ED 19:44
DX: S33.5XXA Sprain of ligaments of lumbar spine, initial encounter (principal); M25.562 Pain in left knee; M25.561 Pain in right knee; E11.40 Type 2 diabetes mellitus with diabetic neuropathy, unspecified; M79.7 Fibromyalgia; M06.9 Rheumatoid arthritis, unspecified; M19.90 Unspecified osteoarthritis, unspecified site; M35.00 Sjogren syndrome, unspecified; F32.9 Major depressive disorder, single episode, unspecified; M81.0 Age-related osteoporosis without current pathological fracture; W01.0XXA Fall on same level from slipping, tripping and stumbling without subsequent striking against object, initial encounter; Y92.009 Unspecified place in unspecified non-institutional (private) residence as the place of occurrence of the external cause; Z79.4 Long term (current) use of insulin; Z86.16 Personal history of COVID-19